=== PATIENT | male | born 1940 | race Caucasian/White ===

== ENCOUNTER 2017-04-22 11:46 | Inpatient (IN) | payer OTHER ==
--- NOTE | 2017-04-22 12:06 | EDPHY ---
H & P Time Seen by Provider: 04/22/17 12:05 HPI/ROS: CHIEF COMPLAINT: Cough and shortness of breath HISTORY OF PRESENT ILLNESS: History of pulmonary hypertension and pulmonary embolism on warfarin. Has had a cough for the past month. 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 Today cough is still present, nonproductive, associated with severe shortness of breath. Has some right-sided rib pain which only hurts when he coughs. Also associated with body aches and a sore throat. REVIEW OF SYSTEMS: Eye: no change in vision ENT: no sore throat Cardiac: No palpitations or syncope Pulmonary: HPI Abdomen: no vomiting, diarrhea, abdominal pain Musculoskeletal: no back pain or leg swelling Skin: no rash Neuro: no headache Constitutional: no fever : no urinary symptoms A comprehensive 10 point review of systems is otherwise negative aside from elements mentioned in the history of present illness. PAST MEDICAL HISTORY: Pulmonary hypertension, pulmonary embolism, hypertension , elevated cholesterol Social history: Nonsmoker, General Appearance: Alert and conversant, cooperative. Eyes: No scleral icterus. ENT, Mouth: Normal mucous membranes. Respiratory: Decreased breath sounds bilaterally with extra work of breathing. Cardiovascular: Regular rate and rhythm. Gastrointestinal: Abdomen is soft and non tender. Neurological: Alert, face symmetric, normal motor and sensory in extremities. Skin: Warm and dry, no rashes. Musculoskeletal: No peripheral edema. No calf tenderness. Psychiatric: Not agitated. Emergency Department course/MDM: Patient severely hypoxic with 80% on room air. Plan for chest x-ray, respiratory panel, labs to include protime. Nasal cannula oxygen applied, saturations in the low 90s. 1233: Chest x-ray stable, INR 1.3. Plan for CT angiography to evaluate for venous thromboembolism if normal creatinine with severe hypoxemia and subtherapeutic INR and history of pulmonary embolism. 1341: positive Flu B,Tamiflu po ordered. 1347: Pulmonary embolism on CTA per Dr. Tellez, received Lovenox 100 mg subcutaneously in the ED. Smoking Status: Never smoked Constitutional: Initial Vital Signs Temperature (C) 37.2 C 04/22/17 11:50 Heart Rate 96 04/22/17 11:50 Respiratory Rate 20 04/22/17 11:50 Blood Pressure 121/80 H 04/22/17 11:50 O2 Sat (%) 80 L 04/22/17 11:50 O2 Delivery Mode Nasal Cannula O2 (L/minute) 2 Allergies/Adverse Reactions: lisinopril Allergy (Verified 04/22/17 11:48) Home Medications: Medication Instructions Recorded Acetaminophen [Tylenol Tablet] 500 mg PO BID 08/22/12 Doxazosin Mesylate [Cardura 4 MG 4 mg PO HS 09/18/14 (*)] Oxybutynin Chloride [Ditropan] 5 mg PO HS 09/18/14 SIMVASTATIN 10 mg PO HS 09/18/14 Valsartan/Hydrochlorothiazide 0.5 each PO DAILY 09/18/14 [Valsartan-Hctz 320-25 mg Tab] amLODIPine BESYLATE [Norvasc 10 mg 10 mg PO DAILY 09/18/14 (*)] Warfarin Sodium [Coumadin 1MG (*)] 0.5 mg PO SUTUTHSA@16 04/22/17 Warfarin Sodium [Coumadin 1MG (*)] 1 mg PO MOWEFR@16 04/22/17 Warfarin Sodium [Coumadin 5MG (*)] 5 mg PO DAILY16 04/22/17 Medical Decision Making - Diagnostics EKG Interpretation: 12-lead EKG interpreted by me; official reading is in trace master. My interpretation is AFib rate 72 with low voltage in inferior leads Imaging Results: Imaging Impressions Chest/Thorax CTA 04/22/17 12:41 Impression: 1. Positive pulmonary thromboemboli bilaterally, small volume. 2. Small right pleural effusion with right lower lobe pneumonitis. 3. Groundglass opacities bilateral upper lobes which may represents additional pneumonitis. 4. No pneumothorax. 5. A few probably benign inflammatory mediastinal lymph nodes. 6. Coronary atherosclerosis. Findings and recommendations discussed with emergency department physician, Dale Hung MD at 1340 hours on April 22, 2017. Final report concurs with initial preliminary interpretation. A test result has been communicated to a licensed care provider and documented in the [facility] Critical Result system on 04/22/2017 14:07, Message ID [id number]. Chest x-ray appears stable without infiltrate or CHF. Imaging: I viewed and interpreted images myself Differential Diagnosis: Differential diagnosis considered for shortness of breath including but not limited to pulmonary infectious process, COPD, asthma, pulmonary embolus and congestive heart failure. Critical Care Time: Critical care time spent by me, Dr. Hung, exclusively with the care of this patient was 30 minutes, exclusive of PA or PLANT SCIENCES PROFESSOR time and exclusive of separate procedures. The organ system at risk was pulmonary and I ordered multiple diagnostics, supplemental oxygen, Tamiflu, anticoagulation to stabilize the patient and prevent worsening of the patient's condition. - Data Points Laboratory Results: Laboratory Results 04/22/17 12:08 04/22/17 12:08 04/22/17 04/22/17 04/22/17 12:08 12:08 12:07 WBC 5.43 10^3/uL 10^3/uL (3.80-9.50) RBC 4.41 10^6/uL 10^6/uL (4.40-6.38) Hgb 14.5 g/dL g/dL (13.7-17.5) Hct 44.3 % % (40.0-51.0) MCV 100.5 fL H fL (81.5-99.8) MCH 32.9 pg pg (27.9-34.1) MCHC 32.7 g/dL g/dL (32.4-36.7) RDW 13.9 % % (11.5-15.2) Plt Count 116 10^3/uL L 10^3/uL (150-400) MPV 9.5 fL fL (8.7-11.7) Neut % (Auto) 63.8 % % (39.3-74.2) Lymph % (Auto) 22.3 % % (15.0-45.0) Mccormick % (Auto) 13.1 % H % (4.5-13.0) Eos % (Auto) 0.0 % L % (0.6-7.6) Baso % (Auto) 0.6 % % (0.3-1.7) Nucleat RBC Rel Count 0.0 % % (0.0-0.2) Absolute Neuts (auto) 3.47 10^3/uL 10^3/uL (1.70-6.50) Absolute Lymphs (auto) 1.21 10^3/uL 10^3/uL (1.00-3.00) Absolute Monos (auto) 0.71 10^3/uL 10^3/uL (0.30-0.80) Absolute Eos (auto) 0.00 10^3/uL L 10^3/uL (0.03-0.40) Absolute Basos (auto) 0.03 10^3/uL 10^3/uL (0.02-0.10) Absolute Nucleated RBC 0.00 10^3/uL 10^3/uL (0-0.01) Immature Gran % 0.2 % % (0.0-1.1) Immature Gran # 0.01 10^3/uL 10^3/uL (0.00-0.10) PT 16.8 SEC H SEC (12.0-15.0) INR 1.34 H (0.83-1.16) Sodium 141 mEq/L mEq/L (135-145) Potassium 4.4 mEq/L mEq/L (3.5-5.2) Chloride 108 mEq/L mEq/L (97-110) Carbon Dioxide 20 mEq/l L mEq/l (22-31) Anion Gap 13 mEq/L mEq/L (8-16) BUN 18 mg/dL mg/dL (7-23) Creatinine 1.1 mg/dL mg/dL (0.7-1.3) Estimated GFR > 60 Glucose 93 mg/dL mg/dL (70-100) Calcium 9.1 mg/dL mg/dL (8.5-10.4) Troponin I 0.062 ng/mL H ng/mL (0.000-0.034) NT-Pro-B Natriuret Pep 6600 pg/mL H pg/mL (0-450) Microbiology Results: MICROBIOLOGY 04/22/17 12:20 Nasal, Sinus - Swab Respiratory Panel (PCR) - Final Influenza Virus Type B Medications Given: Discontinued Medications Enoxaparin Sodium (Lovenox) 100 mg SC EDNOW ONE Stop: 04/22/17 12:59 Last Admin: 04/22/17 13:34 Dose: 100 mg Oseltamivir Phosphate (Tamiflu) 75 mg PO EDNOW ONE Stop: 04/22/17 13:42 Last Admin: 04/22/17 13:48 Dose: 75 mg Departure - Departure Disposition: [facility] Acute Clinical Impression: Hypoxemia, Influenza Pulmonary embolism Qualifiers: Pulmonary embolism type: other Chronicity: acute Acute cor pulmonale presence: with acute cor pulmonale Qualified Code(s): I26.09 - Other pulmonary embolism with acute cor pulmonale Condition: Fair
[2017-04-22 12:21] LABS: PLATELET COUNT 116 10^3/uL (150-400)
--- NOTE | 2017-04-22 12:24 | CPEKG ---
Heart Rate: 72 RR Interval: 833 QRSD Interval: 90 QT Interval: 396 QTC Interval: 434 QRS [place]: 266 T Wave [place]: -1 EKG Severity - ABNORMAL ECG - EKG Impression: ATRIAL FIBRILLATION EKG Impression: MARKEDLY POSTERIOR QRS AXIS EKG Impression: LOW VOLTAGE IN FRONTAL LEADS EKG Impression: CONSIDER INFERIOR INFARCT Electronically Signed By: Dale Hung 22-Apr-2017 12:27:33
[2017-04-22 12:31] LABS: INR 1.34 (0.83-1.16); PROTIME(PATIENT) 16.8 SEC (12.0-15.0)
[2017-04-22] MEDS ORDERED: ENOXAPARIN 100 MG/ML SYR SC ONE (12:58)
[2017-04-22] MEDS ORDERED: IOPAMIDOL (ISOVUE 370) 100 ML BTL IV ONE (12:59)
[2017-04-22] MEDS ORDERED: OSELTAMIVIR PHOSPHATE 75 MG CAP PO ONE (13:41)
[2017-04-22] MEDS ORDERED: ONDANSETRON DISINTEGRATING 4 MG TAB PO PRN (14:36)
[2017-04-22] MEDS ORDERED: ONDANSETRON 4 MG/2 ML VIAL IVP PRN (14:36)
[2017-04-22] MEDS ORDERED: ACETAMINOPHEN 325 MG TAB PO PRN (14:36)
--- NOTE | 2017-04-22 15:16 | GHP ---
[f rep st] HISTORY AND PHYSICAL DATE OF ADMISSION: 04/22/2017 HISTORY OF PRESENT ILLNESS: The patient is a pleasant, 76-year-old gentleman with a history of pulmo nary hypertension and pulmonary embolism, who presents with malaise and shortness of breath. 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 He did not g et a flu shot this year. He has been home for about a week and he has been feeling so weak and tired and dyspneic that he has just been home sleeping for a number of days. He did not take his warfarin . He has not had hemoptysis or cough. He has not had chest pain. He has not had nausea. He has severe shortness of breath. He does wear oxygen at night. He traveled to [place]. He feel s like he does not need it at sea level. He also traveled to [facility] and he did not wear it there. REVIEW OF SYSTEMS: A complete 10-point review of systems was conducted and negative, except as noted in the HPI. PAST MEDICAL HISTORY: 1. Pulmonary embolism in 2008, bilateral. Been on warfarin ever since. 2. Chronic anticoagulation. Last INR was 3.6 one month ago. 3. Pulmonary hypertension. It sounds like it is pulmonary arterial hypertension, based on right and left heart catheterization by Dr. Sprague a number of years ago. This is as related by the patient. I have not reviewed the records. 4. BPH. 5. Hypertension. ALLERGIES: Lisinopril. MEDICATIONS: Home medications are Tylenol, amlodipine, doxazosin, oxybutynin, simvastatin, valsartan /hydrochlorothiazide, warfarin. SOCIAL HISTORY: Occasional alcohol. Lives in [facility]. for a number of years. Still wor ks. FAMILY HISTORY: His father had Parkinson's. Mother had lung disease. PHYSICAL EXAMINATION: VITAL SIGNS: Temperature 36.7, blood pressure 116/78, pulse 76, breathing at 18 times a minute, 88% on 2 L. GENERAL: In no acute distress. HEENT: Sclerae anicteric. Orophary nx clear. Mucous membranes moist. NECK: Supple without lymphadenopathy or JVD. LUNGS: Clear to a uscultation bilaterally. HEART: S1, S2. ABDOMEN: Soft, nontender, nondistended. LOWER EXTREMITIE S: Calves are nontender. SKIN: Without rash. NEUROLOGIC: Nonfocal. LABORATORY: Sodium 141, potassium 4.4, chloride 108, bicarb 20, BUN 18, creatinine 1.1. Troponin 0. 062, BNP is 6600 (there are no priors for comparison). INR is 1.3. White count 5.4, hematocrit 44, platelets are 116,000. EKG interpreted by me shows sinus at 72 with left axis deviation, normal intervals. There are T-wave inversion in lead 3, which is a normal variant. Chest x-ray, also interpreted by me, shows pulmonary arterial hypertension. CTA of the chest shows bilateral small volume pulmonary emboli, small right pleural effusion, ground- glass opacity which may represent pneumonitis. I have discussed the case with Dr. Dale Hung. ASSESSMENT AND PLAN: A 76-year-old man presents with influenza and pulmonary embolism. 1. Influenza. This is attributable to the absence of flu shot and numerous travels with probably in numerable sick contacts. I have started oseltamivir. This may be responsible for his hypoxemia. 2. Pulmonary embolism. He has a subtherapeutic INR. This is not a warfarin failure. I will treat him with low-molecular weight heparin and warfarin. He has a low clot burden. 3. Elevated BNP. I suspect this is secondary to the above 2 items. I will repeat it in the morning . I will not diurese him. 4. Elevated troponin. This is likely right heart strain. I will repeat it. I do not suspect acute coronary syndrome as evidenced by his nonischemic EKG and absence of chest pain. 5. Benign prostatic hypertrophy. Continue his doxazosin. DISPOSITION: Inpatient status. CODE STATUS: Full. /[id number]/MODL
--- NOTE | 2017-04-22 15:43 | PDMN ---
Medical Necessity Medical necessity: C/M review: est. 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
[2017-04-22] MEDS: WARFARIN SODIUM 5 MG TAB PO SCH (16:49)
[2017-04-22] MEDS: WARFARIN SODIUM 1 MG TAB PO SCH (16:49)
[2017-04-22] MEDS ORDERED: ALBUTEROL 3 ML DEYVIAL IH PRN (18:24)
[2017-04-22] MEDS: PRAVASTATIN SODIUM 20 MG TAB PO SCH (20:06)
[2017-04-22] MEDS: OXYBUTYNIN CHLORIDE 5 MG TAB PO SCH (20:06)
[2017-04-22] MEDS: DOXAZOSIN MESYLATE 4 MG TAB PO SCH (20:06)
[2017-04-22] MEDS ORDERED: NON-FORMULARY NEW DRUG (Simvastatin [Simvastatin] 10 MG) PO SCH (21:00)
[2017-04-22] MEDS: ENOXAPARIN 100 MG/ML SYR SC SCH (23:36)
[2017-04-22] MEDS: OSELTAMIVIR PHOSPHATE 75 MG CAP PO SCH (23:36)
[2017-04-23 04:13] LABS: INR 1.56 (0.83-1.16); PROTIME(PATIENT) 18.8 SEC (12.0-15.0)
[2017-04-23] MEDS ORDERED: HYDROCHLOROTHIAZIDE PO SCH (09:00)
[2017-04-23] MEDS ORDERED: VALSARTAN PO SCH (09:00)
[2017-04-23] MEDS ORDERED: [UNRECOGNIZED DRUG - OTHER] PO SCH (09:00)
--- NOTE | 2017-04-23 09:19 | ASMTCMCOM ---
CM Note CM Note Notes: Patient admitted for hypoxia - diagnosed with Influenza and PE. He uses O2 at home and takes Warfarin. He is normally independent - lives with and works. No therapies have been ordered, and I do not anticipate any d/c needs. Case Management available if they arise. Date Signed: 04/23/2017 09:18 AM Electronically Signed By:Jenna Palmer RN
--- NOTE | 2017-04-23 10:40 | ECHO ---
[email or web address] [address] Main: [phone] Fax: Transthoracic Echocardiogram Name: MYRA ROBERT MR#: [id number] Study Date: 04/23/2017 Study Time: 08:29 AM Date of : 1940 Age: 76 year(s) Height: 180.3 cm (71 in.) Weight: 109.32 kg (241 lb.) BSA: 2.28 m2 Gender: Male Examination: Echo Indication: known pulm htn, new PE, elev bnp and trop Image Quality: Adequate Contrast: Requested by: Ramos Olmedo BP: 112 mmHg/70 mmHg Heart Rate: 80 bpm Rhythm: Atrial fibrillation Indication: known pulm htn, new PE, elev bnp and trop Procedure Staff Natural Science Curator: Natalee Matson [facility] Reading Physician: Frank Snowden Requesting Provider: Conclusions: Normal global systolic LV function. EF is 52 %. Mild mitral valve regurgitation is present. There is mild thickening of the aortic cusps. Mild tricuspid regurgitation is present. Mildly dilated aortic root measuring 3.9 cm. Measurements: Chambers Valvular Assessment AV/MV Valvular Assessment TV/PV Normal Normal Normal Name Value Range Name Value Range Name Value Range Ao Arabella (MM): 3.9 cm (2.2 cm-3.7 AV Vmax: 1.02 m/s (1 m/s-1.7 TR Vmax: 2.67 mm/s ( - ) cm) m/s) TR PGmax: 29 mmHg ( - ) IVSd (2D): 1.3 cm (0.6 cm-1.1 AV maxP mmHg ( - ) syst. PAP: 44 mmHg ( - ) cm) LVOT Vmax: 0.72 m/s (0.7 m/s-1.1 PV Vmax: 0.62 m/s (0.6 m/s-0.9 LVDd (2D): 5.0 cm (4.2 cm-5.9 m/s) m/s) cm) MV E Vmax: 0.86 m/s ( - ) PV PGmax: 2 mmHg ( - ) LVDs (2D): 3.7 cm (2.1 cm-4 cm) LVPWd (2D): 1.3 cm (0.6 cm-1 cm) LVEF (BP): 52 % (>=55 %) RVDd(2D): 4.0 cm (1.9 cm-3.8 cmmm) Continued Measurements: Chambers Valvular Assessment AV/MV Valvular Assessment TV/PV Name Value Name Value Name Value LADs: 4.6 cm MV DecTime: 148 m/s CVP (est.): 15 mmHg Patient: MYRA ROBERT Study Date: 04/23/2017 Page 1 of 2 08:29 AM LADs Lon.8 cm LA Area: 26.6 cm2 LA Volume: 74 ml LA Volume Index: 32.5 ml/m2 TAPSE: 1.6 cm RA Area: 23.9 cm2 Additional Vessels Name Value Ao Ascendin.4 cm Findings: Left Ventricle: Normal size left ventricle. Mild to moderate LVH. Normal global systolic LV function. EF is 52 %. No regional wall motion abnormality. Unable to assess diastolic dysfunction. Right Ventricle: Mildly dilated right ventricle. Mildly reduced RV function. Left Atrium: The left atrium is mildly dilated. Right Atrium: The right atrium is moderately dilated. Mitral Valve: The mitral valve is normal in appearance and function. There is mild thickening of the mitral valve leaflets. Mild mitral valve regurgitation is present. No mitral stenosis is present. Aortic Valve: The aortic valve is tri-leaflet and functions normally. There is mild thickening of the aortic cusps. There is no aortic valve regurgitation. No aortic valve stenosis is present. Tricuspid Valve: The tricuspid valve is normal in appearance and function. Mild tricuspid regurgitation is present. The pulmonary artery pressure is mild to moderately increased. Right ventricular systolic pressure measures 44mmHg. Pulmonic Valve: The pulmonic valve is normal in appearance and function. Trivial pulmonic valve regurgitation. Aorta: Mildly dilated aortic root measuring 3.9 cm. Normal size ascending aorta measuring 3.4 cm. IVC: The IVC is dilated. There is less than 50% respiratory excursion. Pericardium: No pericardial effusion. (No Signature Object) Patient: MYRA ROBERT Study Date: 04/23/2017 Page 2 of 2 08:29 AM [id number]
--- NOTE | 2017-04-23 11:22 | HOSPPROG ---
Hospitalist Progress Note Assessment/Plan: 76 yo M w h/o PE admitted w sob, small new pe. incidental discovery of new AF AF: slow chads vasc 2 anticoagulated PE: in setting of subtherapeutic inr and sleeping for three days lmwh and warfarin hypoxemia: progressive not tachy or having CP to suggest add'l PE exam pretty normal but will repeat cxr as i suspect he has progressive influenza related lung disease influenza: tamiflu proph: anticoagulated dispo: inpt Subjective: case d/w dr granados. tele: AF, not rapid. (inter by me) Objective: Vital Signs Temp Pulse Resp BP Pulse Ox 36.3 C 79 20 112/70 92 04/23/17 07:06 04/23/17 07:06 04/23/17 07:06 04/23/17 07:06 04/23/17 07:06 Laboratory Results 04/23/17 03:18 04/22/17 04/23/17 04/24/17 05:59 05:59 05:59 Intake Total 696 Output Total 700 Balance -4 PT 18.8 SEC (12.0-15.0) H 04/23/17 03:18 INR 1.56 (0.83-1.16) H 04/23/17 03:18 - Physical Exam Constitutional: no apparent distress, appears nourished Eyes: PERRL, anicteric sclera Ears, Nose, Mouth, Throat: moist mucous membranes, hearing normal Cardiovascular: regular rate and rhythym, No systolic murmur, No JVD, No edema Respiratory: no respiratory distress, clear to auscultation Gastrointestinal: normoactive bowel sounds, soft, non-tender abdomen Genitourinary: no bladder fullness, No casanova in urethra Skin: warm Musculoskeletal: full muscle strength, no muscle tenderness Neurologic: AAOx3, sensation intact bilaterally Psychiatric: interacting appropriately ICD10 Worksheet Patient Problems: Problems Problem Status Onset Hypoxemia Acute Influenza Acute Pulmonary embolism Acute Lumbar stenosis with neurogenic claudication Acute
[2017-04-23] MEDS: HYDROCHLOROTHIAZIDE 12.5 MG CAP PO SCH (11:58)
[2017-04-23] MEDS: ENOXAPARIN 100 MG/ML SYR SC SCH ×2 (11:58→20:09)
[2017-04-23] MEDS: OSELTAMIVIR PHOSPHATE 75 MG CAP PO SCH ×2 (11:59→17:58)
--- NOTE | 2017-04-23 13:27 | GCON ---
[f rep st] CONSULTATION CARDIOLOGY CONSULTATION DATE OF CONSULTATION: 04/23/2017 CHIEF COMPLAINT: New onset atrial fibrillation. HISTORY OF PRESENT ILLNESS: We were asked by Dr. Olmedo to visit with Don. The patient is known to me from the outpatient setting, and I last saw him in June of 2014. He is a 76-year-old male with n ou-dmqv-uiijyxrs coronary disease, history of DVT, PE, hypertension, pulmonary hypertension, nocturna l hypoxia. He was admitted through the ER with dyspnea, hypoxia, and found to have influenza, as well as recurre nt pulmonary emboli. His INR was subtherapeutic. He was in atrial fibrillation, which is a new find ing for him. Ventricular rate was controlled. Upon my evaluation today, he reports feeling better with oxygen. He has not had anginal chest pain. He is not noticing palpitations. No syncope. No new lower extremity edema. He does have chronic l ower extremity related to his past DVT. ALLERGIES: Lisinopril. PAST MEDICAL HISTORY: 1. Msi-nedh-hsamtmry coronary disease based on angiogram in 2010. 2. History of DVT, and now recurrent PE. 3. Pulmonary hypertension. 4. Nocturnal hypoxia. 5. Dyslipidemia. 6. Hypertension. 7. New diagnosis of atrial fibrillation. OUTPATIENT MEDICATIONS: 1. Warfarin, for which his INR is managed at the anticoagulation clinic, but he has been traveling [place]. 2. Norvasc 10 mg daily. 3. Simvastatin. 4. Valsartan HCTZ. 5. Ditropan. 6. Cardura. SOCIAL HISTORY: The patient is . His is at the bedside. He does not smoke cigarettes. FAMILY HISTORY: Not applicable to the current case. PHYSICAL EXAM: VITAL SIGNS: Blood pressure 112/70, heart rate is 70, oxygen saturation 92% on 7 L n mateo cannula. He is afebrile. GENERAL: Slightly ill-appearing older male in no acute distress. HE ENT: Sclerae clear. No jaundice. Mucous membranes moist. CARDIOVASCULAR: JVP is less than 10. I rregular rate and rhythm, without murmur, S3, or gallop. LUNGS: Coarse breath sounds at both bases. No wheezes. Occasional scattered rhonchi. ABDOMEN: Soft and nontender. EXTREMITIES: Warm, well perfused, with trace bilateral ankle edema. NEURO: Alert and oriented x3, without gross focal neuro logical deficits. Appropriate mood and affect. LABORATORY DATA: White count 5.4, hematocrit 44, and platelets are 116. INR 1.56. Sodium 142, pota ssium 4.4, chloride 107, bicarb 26, BUN 18, creatinine 0.9. BNP is 2906, down from 6600 on admission . His troponin is minimally elevated at 0.62, trending down today to 0.59. Micropanel influenza typ e B positive. EKG, reviewed by me. Atrial fibrillation with controlled ventricular response. Left anterior fascic ular block. Delayed R-wave progression. Chest CT: Bilateral small volume pulmonary emboli. Small right pleural effusion and right lower lob e pneumonitis. Ground-glass opacities in both upper lobes. Inflammatory-appearing mediastinal lymph nodes. Coronary artery calcification. Echocardiogram: Normal LV systolic function, without regional wall motion abnormality. Mild tricusp id regurgitation, mildly dilated right ventricle with mildly reduced systolic function of the right v entricle. Mild left atrial and moderate right atrial dilation. Estimated pulmonary pressure is 44 m mHg. Aortic root is 3.9 cm. ASSESSMENT AND PLAN: A 76-year-old male with daa-bgxt-wtuvqjjr coronary disease, history of DVT, PE, now with recurrent PE in the setting of subth erapeutic INR. Also influenza. He has a new diagnosis of atrial fibrillation, which at this point i s not symptomatic. 1. Atrial fibrillation: He is well rate controlled. He already has a clear indication for anticoag ulation. We will consider switching to Eliquis. 2. PE: Being bridged with Lovenox. As above, consider Eliquis. 3. Pulmonary hypertension: Mild, based on today's echocardiogram. Continue oxygen and anticoagulat ion. 4. Hypoxia: Related to influenza and possibly PE. 5. Dyslipidemia: He is on simvastatin. 6. Hypertension: Well controlled here. He is on valsartan/HCTZ, as well as amlodipine. Thank for allowing us to participate in Don's care. We will follow with you. Copy requested to: primary care /[id number]/MODL
[2017-04-23] MEDS: VALSARTAN 80 MG TAB PO SCH (13:36)
[2017-04-23] MEDS: WARFARIN SODIUM 5 MG TAB PO SCH (17:58)
[2017-04-23] MEDS: WARFARIN SODIUM 1 MG TAB PO SCH (17:58)
[2017-04-23] MEDS ORDERED: CALCIUM CARBONATE 500 MG CHEWABLE TAB PO PRN (18:49)
[2017-04-23] MEDS: OXYBUTYNIN CHLORIDE 5 MG TAB PO SCH (20:08)
[2017-04-23] MEDS: PRAVASTATIN SODIUM 20 MG TAB PO SCH (20:08)
[2017-04-23] MEDS: DOXAZOSIN MESYLATE 4 MG TAB PO SCH (20:09)
[2017-04-24 04:55] LABS: INR 1.58 (0.83-1.16)
[2017-04-24] MEDS: OSELTAMIVIR PHOSPHATE 75 MG CAP PO SCH ×2 (08:58→18:18)
[2017-04-24] MEDS: ENOXAPARIN 100 MG/ML SYR SC SCH ×2 (08:58→21:49)
[2017-04-24] MEDS: HYDROCHLOROTHIAZIDE 12.5 MG CAP PO SCH (08:58)
[2017-04-24] MEDS: VALSARTAN 80 MG TAB PO SCH (08:58)
[2017-04-24] MEDS: WARFARIN SODIUM 5 MG TAB PO SCH (15:12)
[2017-04-24] MEDS: WARFARIN SODIUM 1 MG TAB PO SCH (15:12)
--- NOTE | 2017-04-24 16:30 | HOSPPROG ---
Hospitalist Progress Note Assessment/Plan: # acute on chronic (2L nocturnal) hypoxic resp failure - on 6L; d/t flu and PE # acute PE - cont lovenox and warfarin - discussed eliquis - he will consider # influenza B - tamiflu # a-fib - rate controlled - cont AC as above # htn - norvasc, valsartan/hctz # BPH - doxazosin Subjective: feels well but still coughing Objective: Vital Signs Temp Pulse Resp BP Pulse Ox 36.4 C 73 18 107/77 93 04/24/17 12:00 04/24/17 12:00 04/24/17 12:00 04/24/17 12:00 04/24/17 12:00 Laboratory Results 04/23/17 03:18 04/23/17 04/24/17 04/25/17 05:59 05:59 05:59 Intake Total 696 1300 Output Total 700 300 325 Balance -4 1000 -325 PT 19.0 SEC (12.0-15.0) H 04/24/17 03:45 INR 1.58 (0.83-1.16) H 04/24/17 03:45 chart reviewed CTA reviewed echo reviewed - Physical Exam Constitutional: no apparent distress, appears nourished Cardiovascular: regular rate and rhythym, no murmur, rub, or gallop Respiratory: no respiratory distress, inspiratory crackles (bilat bases), No respiratory distress, No dullness to percussion, No rhonchi Gastrointestinal: normoactive bowel sounds, soft, non-tender abdomen, no palpable masses ICD10 Worksheet Patient Problems: Problems Problem Status Onset Lumbar stenosis with neurogenic claudication Acute Hypoxemia Acute Pulmonary embolism Acute Influenza Acute
--- NOTE | 2017-04-24 17:18 | PDCARPN ---
Cardiology Progress Note Assessment/Plan: Assessment/plan: 76 yo M with hx PE, PHTN, HTN admitted 04/22 with hypoxia found to have influenza B and new PE in the setting of subtherapeutic INR. Also new dx of AF 1. AF: rate controlled. Switch to Eliquis. Consider outpt FORD DCCV 2. Hypoxia: flu and PE. Per hospital medicine 3. HTN: well controlled 4. PHTN: mild on echo this admission 5. TAA: 3.9 cm ascending aorta on echo. Will need outpt surveillance. 6. PE: travels a lot. Eliquis better option for stable anticoag Will sign off; please call with questions. Follow up with me at [facility] in 2-3 weeks. 04/24/17 17:15 Subjective: No SOB with supplemental O2. Does have right sided CP Reviewed/Discussed With: family, hospitalist Objective: Vital Signs (8 Hrs) Temp Pulse Resp BP Pulse Ox 04/24/17 16:00 36.6 C 85 18 121/70 H 94 04/24/17 12:00 36.4 C 73 18 107/77 93 Intake/Output (24 Hrs) 04/23/17 04/24/17 04/25/17 05:59 05:59 05:59 Intake Total 696 1300 Output Total 700 300 325 Balance -4 1000 -325 Intake: Oral (ml) 696 1300 Output: Urine (ml) 700 300 325 Toilet 700 Urinal 300 325 Other: Weight 109.316 kg Intake Quantity Yes Yes Sufficient Number of Voids Toilet 2 Urinal 1 1 Slightly dyspneic Irreg irreg no murmur Occ rhonchi Trace bilat ankle edema Result Diagrams: 04/22/17 12:08 04/23/17 03:18 Cardiac Labs: Cardiac Lab Results (72 Hrs) 04/22/17 18:34 Troponin I 0.059 H Telemetry: Controlled AF ICD10 Worksheet Patient Problems: Problems Problem Status Onset Lumbar stenosis with neurogenic claudication Acute Hypoxemia Acute Pulmonary embolism Acute Influenza Acute
[2017-04-24] MEDS: PRAVASTATIN SODIUM 20 MG TAB PO SCH (21:49)
[2017-04-24] MEDS: OXYBUTYNIN CHLORIDE 5 MG TAB PO SCH (21:49)
[2017-04-24] MEDS: DOXAZOSIN MESYLATE 4 MG TAB PO SCH (21:49)
[2017-04-25 04:26] LABS: INR 1.9 (0.83-1.16); PROTIME(PATIENT) 21.9 SEC (12.0-15.0)
[2017-04-25] MEDS: VALSARTAN 80 MG TAB PO SCH (08:04)
[2017-04-25] MEDS: OSELTAMIVIR PHOSPHATE 75 MG CAP PO SCH ×2 (08:04→17:59)
[2017-04-25] MEDS: HYDROCHLOROTHIAZIDE 12.5 MG CAP PO SCH (08:04)
[2017-04-25] MEDS: ENOXAPARIN 100 MG/ML SYR SC SCH ×2 (08:05→20:11)
--- NOTE | 2017-04-25 09:24 | ASMTCMCOM ---
CM Note CM Note Notes: CM spoke w/ KASSANDRA Flores regarding d/c POC. The plan remains the same. Pt will most likely d/c independent when medically stable. No therapies ordered at this time. CM available for changes. Plan: Independent Date Signed: 04/25/2017 09:24 AM Electronically Signed By:DENISHA Batres
--- NOTE | 2017-04-25 13:03 | HOSPPROG ---
Hospitalist Progress Note Assessment/Plan: # acute on chronic (2L nocturnal) hypoxic resp failure - better today; d/t flu and PE # acute PE - cont lovenox and warfarin - he would prefer warfarin over eliquis # influenza B - tamiflu # a-fib - rate controlled - cont AC as above # htn - norvasc, valsartan/hctz # BPH - doxazosin # thoracic aortic aneurysm - 3.9cm - outpatient follow-up Subjective: feels ok today; titrating down O2; does not want eliquis; seen with his Objective: Vital Signs Temp Pulse Resp BP Pulse Ox 36.5 C 74 16 118/71 91 L 04/25/17 11:44 04/25/17 11:44 04/25/17 11:44 04/25/17 11:44 04/25/17 11:44 Laboratory Results 04/23/17 03:18 04/24/17 04/25/17 04/26/17 05:59 05:59 05:59 Intake Total 1300 1470 Output Total 300 1550 175 Balance 1000 -80 -175 PT 21.9 SEC (12.0-15.0) H 04/25/17 03:16 INR 1.90 (0.83-1.16) H 04/25/17 03:16 - Physical Exam Constitutional: no apparent distress, appears nourished Eyes: anicteric sclera Ears, Nose, Mouth, Throat: hearing normal Respiratory: no respiratory distress, no rales or rhonchi Gastrointestinal: No distension Genitourinary: No casanova in urethra Skin: warm Musculoskeletal: full muscle strength Neurologic: AAOx3 Psychiatric: interacting appropriately ICD10 Worksheet Patient Problems: Problems Problem Status Onset Lumbar stenosis with neurogenic claudication Acute Hypoxemia Acute Pulmonary embolism Acute Influenza Acute
[2017-04-25] MEDS: WARFARIN SODIUM 5 MG TAB PO SCH (15:13)
[2017-04-25] MEDS: WARFARIN SODIUM 1 MG TAB PO SCH (15:13)
[2017-04-25] MEDS: DOXAZOSIN MESYLATE 4 MG TAB PO SCH (20:10)
[2017-04-25] MEDS: PRAVASTATIN SODIUM 20 MG TAB PO SCH (20:10)
[2017-04-25] MEDS: OXYBUTYNIN CHLORIDE 5 MG TAB PO SCH (20:11)
[2017-04-26 08:28] LABS: INR 2.02 (0.83-1.16); PROTIME(PATIENT) 22.9 SEC (12.0-15.0)
[2017-04-26 08:47] VITALS: RESP 16
[2017-04-26] MEDS: ENOXAPARIN 100 MG/ML SYR SC SCH (08:57)
[2017-04-26] MEDS: HYDROCHLOROTHIAZIDE 12.5 MG CAP PO SCH (08:59)
[2017-04-26] MEDS: VALSARTAN 80 MG TAB PO SCH (08:59)
[2017-04-26] MEDS: OSELTAMIVIR PHOSPHATE 75 MG CAP PO SCH (09:00)
[2017-04-26 11:28] VITALS: BP 116/86; PULSE 74; TEMP 98.6; O2SAT 93
--- NOTE | 2017-04-26 12:11 | PDHOMEO2F ---
Home Oxygen Face to Face Home Orders: I certify that a physician or a nurse practitioner or physician's information services assistant has had a [id number] encounter with this patient on the date of this order due to the diagnosis listed, which relates to the primary reason the patient requires home oxygen. Alternative treatments have been tried, or considered, and deemed ineffective. It is anticipated that supplemental oxygen will result in improvement with treatment. Home oxygen qualifying diagnosis: PE with chronic hypoxia; SpO2 on room air (%): 87 Frequency of home oxygen needed: continuous Home oxygen liters per minute: 3L Home oxygen delivery device: nasal cannula Concentrator: Yes E-tanks for mobility and back up: Yes If ordering portable O2, is the patient mobile in the home?: Yes I certify that, based on these findings, the home oxygen is medically necessary for this patient for the following length of time. Length of time home oxygen needed: 99 years
--- NOTE | 2017-04-26 13:00 | GDS ---
[f rep st] DISCHARGE SUMMARY ALL DIAGNOSES: 1. Acute on chronic hypoxic respiratory failure. 2. Acute pulmonary embolus. 3. Anticoagulation use with subtherapeutic INR on admission. 4. Influenza B positive. 5. Atrial fibrillation. 6. Hypertension. 7. Benign prostatic hypertrophy. 8. Thoracic aortic aneurysm, 3.9 cm. HOSPITAL COURSE: A 76-year-old man admitted with shortness of breath. Found to be influenza positiv e. He was on Coumadin for DVT and PE. However, he had not taken it for a few days. His INR was 1.3 on admission. He was also found to have an acute pulmonary embolus. He has been treated with Tamiflu for influenza. He is feeling much better. He was bridged to therap eutic INR with Lovenox. INR on the day of discharge is 2.02. He will continue his home warfarin. Divya wolff discussed transitioning to Eliquis; however, for now he would like to stay with warfarin. He was also incidentally found to be in atrial fibrillation. He was seen by Dr. Sprague, who will follo w him as an outpatient. She would consider a FORD and/or DC cardioversion at some point. Currently, he is rate controlled and anticoagulated, as above. He was found to have a thoracic aortic aneurysm on echo. He will need outpatient surveillance for th is. Dr. Sprague is aware. BILLING: I spent more than 30 minutes on the day of discharge coordinating care. /[id number]/MODL
== END 2017-04-26 15:20 | disposition home or self-care (01) | DRG 193 ==
LOC: F2W 14:36
PROVIDERS: ADMIT Internal Medicine; ATTEND Internal Medicine
DX: J10.1 Influenza due to other identified influenza virus with other respiratory manifestations (principal); I26.99 Other pulmonary embolism without acute cor pulmonale; J96.21 Acute and chronic respiratory failure with hypoxia; I48.91 Unspecified atrial fibrillation; R79.1 Abnormal coagulation profile; I71.2 Thoracic aortic aneurysm, without rupture; I27.20 Pulmonary hypertension, unspecified; N40.0 Benign prostatic hyperplasia without lower urinary tract symptoms; Z79.01 Long term (current) use of anticoagulants
CPT/HCPCS: J1650; J7613; Q9967

== ENCOUNTER → 2017-08-30 | Outpatient (CLI) | payer OTHER | LOC: BHFA 13:30 | PROVIDERS: ATTEND Internal Medicine Cardiovascular Disease | DX: I48.91 Unspecified atrial fibrillation (principal); R06.02 Shortness of breath ==

== ENCOUNTER → 2017-09-03 | Outpatient (CLI) | payer OTHER | LOC: BHFA 09:00 | PROVIDERS: ATTEND Internal Medicine Cardiovascular Disease | DX: I48.91 Unspecified atrial fibrillation (principal); R06.09 Other forms of dyspnea | CPT/HCPCS: 78452; 93017; A9500; J2785 ==

== ENCOUNTER 2017-09-17 09:07 | Day surgery (SDC) | payer OTHER ==
[2017-09-17] MEDS ORDERED: ATROPINE SULFATE 1 MG/10 ML SYR IVP ONE (09:09)
[2017-09-17] MEDS ORDERED: fentaNYL 100 MCG/2 ML INJ IVP ONE (09:09)
[2017-09-17] MEDS ORDERED: BENZOCAINE UNIT DOSE SPRAY HURRICAINE MM ONE (09:09)
[2017-09-17] MEDS ORDERED: NS 500 ML IV ONE (09:09)
[2017-09-17] MEDS ORDERED: MIDAZOLAM 2 MG/2 ML VIAL IVP ONE (09:09)
--- NOTE | 2017-09-17 09:18 | PDHPUP ---
History & Physical Update H&P update statement: This history and physical update is based on an assessment of the patient which was completed after admission or registration (within 24 hours), but prior to the surgery/procedure. H&P update: H&P reviewed & patient examined, no change in patient's condition since H&P completed (Please see my office note from earlier this month)
--- NOTE | 2017-09-17 09:27 | CPEKG ---
Heart Rate: 75 RR Interval: 800 P-R Interval: 180 QRSD Interval: 96 QT Interval: 440 QTC Interval: 492 P [place]: 0 QRS [place]: 259 T Wave [place]: 42 EKG Severity - ABNORMAL ECG - EKG Impression: SINUS RHYTHM EKG Impression: MULTIPLE ATRIAL PREMATURE COMPLEXES EKG Impression: PROBABLE INFERIOR INFARCT, AGE INDETERMINATE EKG Impression: BORDERLINE PROLONGED QT INTERVAL Electronically Signed By: Keven Geronimo 19-Sep-2017 12:18:25
[2017-09-17 10:03] LABS: INR 1.48 (0.83-1.16); PROTIME(PATIENT) 18.1 SEC (12.0-15.0)
[2017-09-17] MEDS ORDERED: PROPOFOL 200 MG/20 ML VIAL ONE ×2 (10:24)
--- NOTE | 2017-09-17 10:32 | PDANEPAE ---
ANE History of Present Illness FORD, synchronized CV ANE Past Medical History - Cardiovascular History Hx Hypertension: Yes Hx Arrhythmias: No Hx Chest Pain: Yes Hx Coronary Artery / Peripheral Vascular Disease: No Hx CHF / Valvular Disease: No Hx Palpitations: No Cardiovascular History Comment: PULM HTN, HPL. CHEST PAIN X SEVERAL MONTHS AGO - Pulmonary History Hx COPD: No Hx Asthma/Reactive Airway Disease: No Hx Recent Upper Respiratory Infection: Yes Hx Oxygen in Use at Home: Yes Hx Sleep Apnea: No Pulmonary History Comment: PE in past, has IVC filter, on O2 due to shortness of breath - Neurologic History Hx Cerebrovascular Accident: No Hx Seizures: No Hx Dementia: No - Endocrine History Hx Diabetes: No Obesity: moderate - Renal History Hx Renal Disorders: Yes Renal History Comment: BLADDER - CARDURA & DITROPAN. WELL CONTROLLED - Liver History Hx Hepatic Disorders: No - Neurological & Psychiatric Hx Hx Neurological and Psychiatric Disorders: No - Cancer History Hx Cancer: No - Congenital Disorder History Hx Congenital Disorders: No - GI History GERD: mild Hx Gastrointestinal Disorders: No - Other Health History Other Health History: NEG - Chronic Pain History Chronic Pain: Yes (BACK PAIN) - Surgical History Prior Surgeries: APPENDECTOMY. PE 2008-. -FILTER PLACED AND REMOVED. COLONOSCOPY. ANGIOGRAPHY X2 2012 & 2013 ANE Review of Systems Review of Systems: ANE Patient History - Allergies Allergies/Adverse Reactions: lisinopril Allergy (Verified 04/22/17 11:48) - Home Medications Home Medications: Acetaminophen [Tylenol ES 500 mg (*)] 500 mg PO BID 08/22/12 [Last Taken ] Doxazosin Mesylate [Cardura 4 MG (*)] 4 mg PO HS 09/18/14 [Last Taken 09/16/17] Oxybutynin Chloride [Ditropan] 5 mg PO BID 09/18/14 [Last Taken 09/16/17] SIMVASTATIN 10 mg PO HS 09/18/14 [Last Taken 09/16/17 16:00] Apixaban [Eliquis] 5 mg PO BID 09/17/17 [Last Taken 09/17/17 08:00] Spironolactone 25 mg PO DAILY 09/17/17 [Last Taken Unknown] amLODIPine BESYLATE [Norvasc 5 mg (*)] 5 mg 09/17/17 [Last Taken 09/16/17 16:00] - Smoking Hx Smoking Status: Never smoked ANE Labs/Vital Signs - Labs Result Diagrams: 09/17/17 09:35 - Vital Signs Height: 180.34 cm Weight: 106.594 kg ANE Physical Exam - Airway Neck exam: FROM Mallampati Score: Class 1 Mouth exam: normal dental/mouth exam - Pulmonary Pulmonary: clear to auscultation - Cardiovascular Cardiovascular: irregularly irregular - ASA Status ASA Status: III ANE Anesthesia Plan Anesthesia Plan: GA with mask
--- NOTE | 2017-09-17 10:59 | PDTEE1 ---
FORD Cardioversion Procedure Procedure: electrical cardioversion, transesophageal echo Indications: atrial fibrillation Consent: signed and in chart Anticoagulation: eliquis Procedural Details: Sedation provided by the anesthesia service. Pads were placed in anterior- posterior position. FORD probe was advanced and standard images obtained. There is no evidence of left atrial or left atrial appendage thrombus. Synchronized cardioversion attempt #1: 200J Results: normal sinus rhythm Conclusions: successful FORD cardioversion Patient Problems: Problems Problem Status Onset Hypoxemia Acute Influenza Acute Lumbar stenosis with neurogenic claudication Acute Pulmonary embolism Acute
--- NOTE | 2017-09-17 11:11 | CPEKG ---
Heart Rate: 59 RR Interval: 1017 P-R Interval: 248 QRSD Interval: 100 QT Interval: 488 QTC Interval: 484 P [place]: 55 QRS [place]: -81 T Wave [place]: 15 EKG Severity - ABNORMAL ECG - EKG Impression: SINUS RHYTHM EKG Impression: FIRST DEGREE AV BLOCK EKG Impression: PROBABLE INFERIOR INFARCT, AGE INDETERMINATE EKG Impression: BORDERLINE PROLONGED QT INTERVAL Electronically Signed By: Keven Geronimo 19-Sep-2017 12:18:35
--- NOTE | 2017-09-17 20:26 | ECHO ---
[email or web address] [address] [address] Main: [phone] Fax: Transesophageal Echocardiography Name: MYRA ROBERT MR#: [id number] Study Date: 09/17/2017 Study Time: 10:07 AM Date of : 1940 Age: 76 year(s) Height: ( ) Weight: ( ) BSA: Gender: Male Examination: FORD Indication: Pre cardioversion Image Quality: Adequate Contrast: Requested by: Ivet Sprague Heart Rate: Rhythm: BP: / Procedure Staff Educational Coordinator: Gina Cancino CHAY Reading Physician: Ivet Sprague MD Requesting Provider: FORD Exam Details Conclusions: Normal size left ventricle. Low normal left ventricular systolic function. The ejection fraction is visually estimated to be 50 %. Mildly dilated right ventricle. Mildly reduced RV systolic function. An agitated saline study was performed and was negative for intracardiac shunting. The left atrial appendage is unilobular. Good color flow doppler in the left atrial appendage. No thrombus in left appendage. Moderate mitral valve regurgitation is present. Moderate tricuspid regurgitation is present. The pulmonary artery pressure is mildly increased. Right ventricular systolic pressure measures 47mmHg. Proceed with cardioversion Measurements: Chambers Valvular Assessment AV/MV Valvular Assessment TV/PV Normal Normal Normal Name Value Range Name Value Range Name Value Range LVOTd 2.1 cm 2.1 cm mm TR Vmax: 3.24 mm/s ( - ) Visual EF: 50 % TR PGmax: 42 mmHg ( - ) syst. PAP: 47 mmHg ( - ) Additional Measurements: Patient: MYRA ROBERT Study Date: 09/17/2017 Page 1 of 2 10:07 AM Valvular Assessment AV/MV Valvular Assessment TV/PV Name Value Name Value MR ERO: 0.130 cm2 CVP (est.): 5 mmHg MR PISA radius: 5 mm MR Reg. Volume: 18 ml Findings: Left Ventricle: Normal size left ventricle. Low normal left ventricular systolic function. The ejection fraction is visually estimated to be 50 %. No regional wall motion abnormality. Right Ventricle: Mildly dilated right ventricle. Mildly reduced RV systolic function. Left Atrium: The left atrium is normal in size. An agitated saline study was performed and was negative for intracardiac shunting. Left Atrial Appendage: The left atrial appendage is unilobular. Good color flow doppler in the left atrial appendage. Normal PW-Doppler flow pattern. No thrombus in left appendage. Right Atrium: The right atrium is normal in size. Mitral Valve: Moderate mitral valve regurgitation is present. Aortic Valve: The aortic valve is tri-leaflet. There is no significant aortic valve regurgitation. No aortic valve stenosis is present. Tricuspid Valve: Moderate tricuspid regurgitation is present. The pulmonary artery pressure is mildly increased. Right ventricular systolic pressure measures 47mmHg. Pulmonic Valve: The pulmonic valve is normal in appearance and function. l1n (No Signature Object) Patient: MYRA ROBERT Study Date: 09/17/2017 Page 2 of 2 10:07 AM [id number]
--- NOTE | 2017-09-18 16:12 | POSTANESTH ---
Post Anesthetic Evaluation Cardiovascular Status: Similar to Pre-Op Cond Respiratory Status: Similar to Pre-op Cond. Level of Consciousness/Mental Status: Can Participate in Eval Pain Control: Adequate, Prn Tx Ordered Nausea/Vomiting Control: Adequate, Prn Tx Ordered Complications Possibly Related to Anesthesia: None Noted
== END 2017-09-17 12:23 | disposition home or self-care (01) ==
LOC: FCATH 09:07
PROVIDERS: ATTEND Internal Medicine Cardiovascular Disease
PROC: B245ZZ4 Ultrasonography of Left Heart, Transesophageal (ICD-10-PCS; principal; 2017-09-17)
PROC: 5A2204Z Restoration of Cardiac Rhythm, Single (ICD-10-PCS; principal; 2017-09-17)
DX: I48.91 Unspecified atrial fibrillation (principal); I10 Essential (primary) hypertension; E78.5 Hyperlipidemia, unspecified; I27.20 Pulmonary hypertension, unspecified; I26.99 Other pulmonary embolism without acute cor pulmonale; I77.810 Thoracic aortic ectasia; R60.9 Edema, unspecified; I25.10 Atherosclerotic heart disease of native coronary artery without angina pectoris; N40.0 Benign prostatic hyperplasia without lower urinary tract symptoms; Z79.01 Long term (current) use of anticoagulants
CPT/HCPCS: J0461; J2704

== ENCOUNTER 2018-02-09 20:40 | Inpatient (IN) | payer OTHER ==
--- NOTE | 2018-02-09 21:01 | EDPHY ---
H & P Stated Complaint: Lower abd pain and nausea Time Seen by Provider: 02/09/18 20:49 HPI/ROS: CHIEF COMPLAINT: Abdominal pain HISTORY OF PRESENT ILLNESS: This is a 77-year-old male with multiple medical problems who presents with lower abdominal pain that began approximately 8 hr ago (after he ate clam chowder). The pain has been on and off throughout the day but over the last hour or two it has gotten progressively worse. It is now constant. He has been constipated for the past 2 days. He took Pepto-Bismol this evening and had a normal bowel movement around 6:00 p.m. And a small bowel movement around 8:00 p.m. (1 hr ago). He has had nausea but no vomiting. He has not been aware of fever. No urinary complaints. His appendix has been removed. No other abdominal surgeries. REVIEW OF SYSTEMS: A ten system review of systems was performed and is negative with the exception of the items mentioned in the HPI. Past medical history: 1. Pulmonary hypertension 2. PE/DVT on Eliquis 3. Hypertension 4. Hyperlipidemia 5. Atrial fibrillation 6. Obstructive sleep apnea Past surgical history: 1. L4-5 back surgery 2. Detached retina left eye 2016 3. Bilateral cataracts 2016 4. Appendectomy Social history: He lives with his . He works in sales training. He does not use tobacco products. He drinks alcohol on rare occasion. General Appearance: Alert. Vital signs reviewed. Eyes: Pupils equal and round, no conjunctival injection, no discharge. Anicteric. ENT, Mouth: Mucous membranes are moist, no oropharyngeal erythema or edema. Is wearing nasal cannula oxygen. Neck: No lymphadenopathy, supple. Respiratory: Lungs are clear to auscultation; no wheezes, rales, or rhonchi. Cardiovascular: Regular rate and rhythm; no murmur, rub, or gallop. Gastrointestinal: Abdomen is soft with diffuse tenderness, worse in the suprapubic region and bilateral lower quadrants, slightly worse in the left lower quadrant than on the right, no masses or organomegaly, bowel sounds present. Easily reduced umbilical hernia. Skin: Warm and dry, no rashes on exposed skin, normal color. Back: Nontender to palpation over the thoracolumbar spine. No CVAT. Extremities: No lower extremity edema, no calf tenderness or swelling. Neurological: Alert and oriented. Moving all four extremities easily and equally. Psychiatric: Normal affect. - Personal History Current Tetanus/Diphtheria Vaccine: Yes Current Tetanus Diphtheria and Acellular Pertussis (TDAP): Yes Tetanus Vaccine Date: JULY 2012 - Medical/Surgical History Hx Asthma: No Hx Chronic Respiratory Disease: Yes Hx Diabetes: No Hx Cardiac Disease: Yes Hx Renal Disease: No Hx Cirrhosis: No Hx Alcoholism: No Hx HIV/AIDS: No Hx Splenectomy or Spleen Trauma: No Other PMH: Detached retina L eye, 05/19, 01/19 cataracts, hyperlipidemia, L4-L5 back surgery, afib, YASMANI,. DVT/PE 02/2009, 04/2017. pulmonary HTN. HTN. Elevated cholesterol - Social History Smoking Status: Never smoked Constitutional: Initial Vital Signs Temperature (C) 36.6 C 02/09/18 20:41 Heart Rate 67 02/09/18 20:41 Respiratory Rate 16 02/09/18 20:41 Blood Pressure 133/74 H 02/09/18 20:41 O2 Sat (%) 87 L 02/09/18 20:41 O2 Delivery Mode Room Air O2 (L/minute) 2 Allergies/Adverse Reactions: lisinopril Allergy (Verified 02/10/18 08:39) Other-Enter Comments Home Medications: Medication Instructions Recorded Acetaminophen [Tylenol ES 500 mg 500 mg PO BID 08/22/12 (*)] Doxazosin Mesylate [Cardura 4 MG 4 mg PO HS 09/18/14 (*)] Oxybutynin Chloride [Ditropan] 5 mg PO BID 09/18/14 SIMVASTATIN 10 mg PO HS 09/18/14 Apixaban [Eliquis] 5 mg PO BID 09/17/17 Furosemide [Lasix 40 MG (*)] 40 mg PO DAILY 09/17/17 amLODIPine BESYLATE [Norvasc 5 mg 2.5 mg PO DAILY 09/17/17 (*)] Bismuth Subsalicylate 30 ml PO DAILY PRN 02/10/18 [Pepto-Bismol oral liquid (*)] Medical Decision Making ED Course/Re-evaluation: 77-year-old male with lower abdominal pain that began earlier today and has gradually worsened. He has diffuse tenderness, worse in the lower quadrants on exam. Patient received fentanyl 100 mcg with minimal relief. He vomited shortly after receiving this medication. He does not currently have nausea. On reexamination at 9:35 a.m. He continues with diffuse abdominal pain, worse in the lower quadrants. His white blood cell count is mildly elevated. CT scan of the abdomen and pelvis has been ordered. CT scan shows small bowel obstruction. He will be admitted to the hospitalist service with surgical consultation by Dr. Rodriguez. Differential Diagnosis: Abdominal pain including but not limited to bowel obstruction, constipation, cholecystitis, pancreatitis, gastroenteritis, gastritis and urinary tract infection. - Data Points Laboratory Results: Laboratory Results 02/09/18 21:05 02/09/18 21:05 Medications Given: Acetaminophen (Tylenol) 1,000 mg PO Q8H [facility] Stop: 08/09/18 14:14 Last Admin: 02/10/18 22:03 Dose: Not Given Enoxaparin Sodium (Lovenox) 90 mg SC BID ANA LUISA Stop: 08/09/18 08:59 Last Admin: 02/10/18 08:38 Dose: 90 mg Sodium Chloride (Ns) 1,000 mls @ 100 mls/hr IV CONT ANA LUISA Stop: 08/08/18 22:44 Last Admin: 02/10/18 10:39 Dose: 1,000 mls Ceftriaxone Sodium/Dextrose (Rocephin 1 Gm (Premix)) 50 mls @ 100 mls/hr IV DAILY [facility] PRN Reason: Protocol Stop: 03/12/18 11:59 Last Admin: 02/10/18 12:23 Dose: 50 mls Metronidazole/Sodium Chloride (Flagyl 500 Mg (Premix)) 100 mls @ 100 mls/hr IV Q8H [facility] PRN Reason: Protocol Stop: 02/11/18 04:59 Last Admin: 02/10/18 19:55 Dose: 100 mls Ketorolac Tromethamine (Toradol) 15 mg IVP Q6HRS ANA LUISA Stop: 02/15/18 17:59 Last Admin: 02/10/18 18:41 Dose: 15 mg Discontinued Medications Fentanyl (Sublimaze) 100 mcg IVP EDNOW ONE Stop: 02/09/18 21:03 Last Admin: 02/09/18 21:22 Dose: 100 mcg Hydromorphone HCl (Dilaudid) 1 mg IVP EDNOW ONE Stop: 02/09/18 22:10 Last Admin: 02/09/18 22:11 Dose: 1 mg Hydromorphone HCl (Dilaudid) 0.2 - 0.4 mg IVP Q4HRS PRN PRN Reason: Pain, Severe Unable to Take PO Stop: 02/19/18 22:43 Last Admin: 02/09/18 23:24 Dose: 0.2 mg Hydromorphone HCl (Dilaudid) 0.8 mg IVP ONCE ONE Stop: 02/10/18 00:16 Last Admin: 02/10/18 00:15 Dose: 0.8 mg Hydromorphone HCl (Dilaudid) 0.2 - 0.4 mg IVP Q2 PRN PRN Reason: Pain, Severe Unable to Take PO Stop: 02/20/18 00:04 Last Admin: 02/10/18 11:13 Dose: 0.4 mg Hydromorphone HCl (Dilaudid) 1 mg IVP ONCE ONE Stop: 02/10/18 11:25 Last Admin: 02/10/18 11:32 Dose: 1 mg Sodium Chloride (Ns) 1,000 mls @ 200 mls/hr IV CONT ANA LUISA Stop: 08/08/18 22:14 Last Admin: 02/09/18 22:13 Dose: 1,000 mls Metronidazole/Sodium Chloride (Flagyl 500 Mg (Premix)) 100 mls @ 100 mls/hr IV ONCE ONE PRN Reason: Protocol Stop: 02/10/18 12:48 Last Admin: 02/10/18 12:42 Dose: 100 mls Lidocaine (Uroject Lidocaine 2% Jelly) Confirm Administered Dose 20 ml .ROUTE .STK-MED ONE Stop: 02/10/18 12:45 Last Admin: 02/10/18 12:54 Dose: 20 ml Ondansetron HCl (Zofran) 4 mg IVP EDNOW ONE Stop: 02/09/18 22:10 Last Admin: 02/09/18 22:10 Dose: 4 mg Departure - Departure Disposition: [facility] Acute Clinical Impression: Small bowel obstruction Condition: Fair
[2018-02-09] MEDS ORDERED: fentaNYL 100 MCG/2 ML INJ IVP ONE (21:02)
[2018-02-09 21:18] LABS: PLATELET COUNT 189 10^3/uL (150-400)
[2018-02-09] MEDS ORDERED: IOPAMIDOL (ISOVUE-300) 100 ML BTL ONE (21:43)
[2018-02-09] MEDS ORDERED: ONDANSETRON 4 MG/2 ML VIAL ONE (22:08)
[2018-02-09] MEDS ORDERED: HYDROmorphONE/DILAUDID 1 MG/ML INJ ONE (22:08)
[2018-02-09] MEDS ORDERED: ONDANSETRON 4 MG/2 ML VIAL IVP ONE (22:09)
[2018-02-09] MEDS ORDERED: HYDROmorphONE/DILAUDID 2 MG/ML INJ IVP ONE (22:09)
[2018-02-09] MEDS ORDERED: NS 1,000 ML IV SCH (22:15)
[2018-02-09] MEDS ORDERED: PROMETHAZINE HCL 25 MG/ML INJ IVP PRN (22:44)
[2018-02-09] MEDS ORDERED: ONDANSETRON DISINTEGRATING 4 MG TAB PO PRN (22:44)
[2018-02-09] MEDS ORDERED: ONDANSETRON 4 MG/2 ML VIAL IVP PRN (22:44)
[2018-02-09] MEDS ORDERED: ACETAMINOPHEN 325 MG TAB PO PRN (22:44)
[2018-02-09] MEDS ORDERED: HYDROmorphONE/DILAUDID 1 MG/ML INJ IVP PRN (22:44)
[2018-02-10] MEDS ORDERED: HYDROmorphONE/DILAUDID 1 MG/ML INJ IVP ONE ×2 (00:15→11:24)
[2018-02-10] MEDS: NS 1,000 ML IV SCH ×2 (00:45→10:39)
--- NOTE | 2018-02-10 01:31 | GHP ---
DATE OF ADMISSION: 02/09/2018 The patient is a 77-year-old gentleman with a history of pulmonary hypertension, VTE and remote appen dectomy, who presents with abdominal pain that began earlier in the day. He had clam neil. Uncle ar if [place] or [place]. He subsequently developed abdominal pain with nausea, vomiting, and distention. He had 1 episode of vomiting in the emergency department. He sought care where he was f ound to have a small bowel obstruction. He has not had fever, chills. He has not had sputum. There is no diarrhea. He wears nocturnal oxygen. He takes Eliquis. His VTE episode was in 2008. REVIEW OF SYSTEMS: A complete 10-point review of systems conducted and negative except as noted in t he HPI. PAST MEDICAL HISTORY: 1. 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 2. 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 3. Hypertension. 4. Hyperlipidemia. 5. Atrial fibrillation status post cardioversion. 6. Obstructive sleep apnea. 7. L4-L5 back surgery. 8. Detached retina in his left eye 2016. 9. Bilateral cataracts 2016. 10. Appendectomy 1992. 11. BPH. SOCIAL HISTORY: He lives with his . He works in sales training. He does not use tobacco. Kwadwo ks alcohol occasionally. He had 2 beers last . FAMILY HISTORY: Parents . PHYSICAL EXAMINATION: VITAL SIGNS: Temp 36.6, blood pressure 133/74, pulse 67, breathing 16 times a minute, 87% on room air, 95 on 2 L. GENERAL: No acute distress. Sclerae anicteric. Oropharynx cl ear. Mucous membranes are moist. NECK: Supple with no lymphadenopathy or JVD. LUNGS: Clear to au scultation bilaterally. HEART: S1, S2. ABDOMEN: Soft. Bowel sounds are hypoactive, but present. There is no rebound or guarding but there is distention and tenderness. LOWER EXTREMITIES: Without edema. Calves are nontender. SKIN: Without rash. NEUROLOGIC: Nonfocal. LABORATORY DATA: Sodium 141, potassium 4.0, chloride 106, bicarb 26, BUN 21, creatinine 1.0, glucose 139. LFTs normal. Lipase normal. CBC: White count 10.3, hematocrit 43.1, platelets are 189. MCV is slightly elevated at 101.4. ALLERGIES: Lisinopril. HOME MEDICATIONS: Tylenol, amlodipine, apixaban, doxazosin, furosemide, oxybutynin, simvastatin, spi ronolactone. I have discussed the case with Dr. Eun Diaz as well as Dr. Rodriguez. CT shows small bowel obstruction with no free air. There is possibly a transition point in the mid p gema. He has an enlarged prostate. I reviewed the images myself. ASSESSMENT/PLAN: A 77-year-old gentleman with small bowel obstruction. 1. Small bowel obstruction. I will manage him conservatively with n.p.o., IV fluids, pain medicines and antiemetics. We discussed the role of NG tube. He declines for now, but I did mention to him t hat if he becomes more distended, he may have symptomatic relief. He will be followed by Surgery, wh ich is appreciated. 2. History of venous thromboembolism. He is still on anticoagulation. He currently takes _. I will manage him with low-molecular weight heparin given his inability to keep p.o. 3. Benign prostatic hypertrophy. We will follow. 4. Atrial fibrillation. No need for telemetry. 5. Leukocytosis attributable to small bowel obstruction. DISPOSITION: Inpatient status. /[id number]/MODL
[2018-02-10] MEDS: HYDROmorphONE/DILAUDID 1 MG/ML INJ IVP PRN ×4 (03:20→11:13)
[2018-02-10 04:59] LABS: PLATELET COUNT 175 10^3/uL (150-400)
[2018-02-10] MEDS: ENOXAPARIN 100 MG/ML SYR SC SCH (08:38)
--- NOTE | 2018-02-10 08:53 | GCON ---
REFERRING PHYSICIAN: Eun Diaz MD ADMISSION DIAGNOSES: Partial small-bowel obstruction. HISTORY: The patient is a 77-year-old male who was eating a half a bowl of clam chowder this morning at 11 a.m. At approximately 2 p.m., he had the onset of a colicky generalized abdominal pain. This persisted prompting his visit to the emergency room. He did receive narcotics and vomited shortly thereafter for his first only episode of vomiting. His last stool was at 7 p.m. tonight, he tried again at 8 p.m. without results and then he came to the emergency room. He has not had a recent upper respiratory tract infection or diarrhea. Prior surgery has included an appendectomy. His CAT scan shows minimal dilatation of stomach, mild dilatation of the proximal small bowel, and collapse of distal small bowel. SOCIAL HISTORY: He does not smoke and never has. He does drink intermittently and had for example 4 drinks last week. ALLERGIES: He is has an adverse reaction to lisinopril (tickle in his throat). He does not report any other adverse reactions or allergies. HOME MEDICATIONS: Include Tylenol 500 mg twice a day, Norvasc 5 mg daily. He takes Lasix 40 mg daily (see below). He takes spironolactone 25 mg daily. He also takes apixaban 5 mg twice a day, Cardura 4 mg p.o. at bedtime, and Ditropan 5 mg twice a day, simvastatin 10 mg q.h.s. REVIEW OF SYSTEMS: He does use oxygen at night at 2 L/minute. He does not have sleep apnea or use a CPAP device. He has a right common iliac stent. He had a diskectomy at L4-5. He has had bilateral cataract extraction with lens placement. He had detached retina treated with the laser. He did have a venacaval filter placed and subsequently removed. There is no history of rheumatic fever, tuberculosis, hepatitis, or transfusions. He has had difficulties in the past with endurance. He was diagnosed as having atrial fibrillation in June of this year. He did undergo cardioversion and felt much better afterwards. He had his DVT in February of 2009. This was complicated by a pulmonary embolism and led to pulmonary hypertension. He has had systemic hypertension for greater than 60 years. He wears lenses for visual correction. He has dental crowns. He does have GERD after spicy foods, which is a rate of once or twice a month. His activity is limited by shortness of breath, though is better after his cardioversion. Note is made that he originally had Lasix started in July of this year and it was stopped after the cardioversion, but restarted 2 weeks ago. He has prostatism as manifested by nocturia x2, terminal dribbling, a spray like stream initially. He also has a decreased force in his stream. PHYSICAL EXAMINATION: VITAL SIGNS: Blood pressure is 133/74 at 67. His room air sats are 97%. GENERAL: He is awake and alert, quite pleasant. NEUROLOGIC: He is oriented to person, place, and time. GCS is 15. There are no focal lateralizing neurologic findings. HEENT: Skull is normocephalic and atraumatic. NECK: There are no bruits or thyroid enlargement. LYMPHATIC: There is no cervical, supraclavicular, axillary, or inguinal lymphadenopathy. BACK: He is diaphoretic at this point. CHEST: Chest stable to AP and lateral compression. LUNGS: Clear to auscultation. CARDIAC: Shows S1, S2 to be normal. He has a regular rate and rhythm. ABDOMEN: Not distended. He has hypoactive nonobstructive sound in bowel sounds. He does have an umbilical hernia which is easily reduced and not seen on CT scan to be an obstructing process. I do not detect any inguinal hernias. With cough, he is tender 3 fingerbreadths above the pubic tubercle and approximately 2 fingerbreadths to the right of the midline at the level of 3/ 10. To palpation, left upper quadrant is 1/10 mid, left mid abdomen is 3/10, left lower quadrant 1/10, epigastrium is 1/10, periumbilical region is 4/10, suprapubic region is 2/10, right upper quadrant is 2/10, right mid abdomen is 4/ 10, right lower quadrant is 4/10. LABORATORY/IMAGING: White blood cell count is 10.26 with 76% neutrophils, hematocrit is 43, mean corpuscular volume is 101.4, platelet count 29, creatinine is 1.0, BUN is 12. In reviewing his CT scan, CT does show a hiatal hernia. As mentioned before, there is no umbilical hernia. There are multiple dilated small bowel loops mainly in the left upper quadrant. The kidneys show several cystic changes. There is calcified plaque in the coronary vessels, the mitral anulus and the renal arteries. He does have degenerative changes in his spine. There is a stent in the proximal right common iliac artery. The transition point appears to be in the lower mid abdomen. IMPRESSION: Patient with small-bowel obstruction, probably secondary to an adhesion and this is exacerbated by the lack of chewing for the clam tissue in clam chowder getting caught. His stomach is not distended at this point. I do not think a nasogastric tube is going to add much at this time. I expect this to resolve without surgical intervention. Followup abdominal x-ray will be ordered for the morning. /[id number]/MODL MTDD
--- NOTE | 2018-02-10 09:37 | ASMTCMCOM ---
CM Note CM Note Notes: Patient admitted with abd pain and SBO on imaging. He is being managed conservatively with pain medications and fluids. Surgery will see. Patient is normally independent and lives with . If he has any discharge needs, Case Management will assist. Date Signed: 02/10/2018 09:37 AM Electronically Signed By:Jenna Palmer RN
--- NOTE | 2018-02-10 10:10 | PDMN ---
Medical Necessity Medical necessity: MCG M210 Intestinal Obstruction, 2 days: 77 yo w/ SBO. Admit to IP status for management of SBO w/ IVF, pain management, antiemetics, NPO. Surgical Consult. Hx DVT, PE, pHTN, HTN, HLD, Afib, YASMANI
--- NOTE | 2018-02-10 10:17 | HOSPPROG ---
Hospitalist Progress Note Assessment/Plan: Rainer More is a 77 y/o male who presented to the ER with abdominal pain. Pain occurred after eating clam chowder last night, Tried pepto-bismol without improvement. Pain is ongoing today in LLQ *SBO -CT shows small obstruction -abd x ray pending *hx of DVT -on treatment dose of anticoagulation *BPH *AFIB -s/p ablation -in sinus rhythm now *Leukocytosis *Plan: Lc has significant pain david in LLQ, cont IV Dilaudid, this is giving him some relief . Subjective: Lc said pain is managed w iv dilaudid. Objective: Vital Signs Temp Pulse Resp BP Pulse Ox 36.5 C 79 14 126/74 H 90 L 02/10/18 07:50 02/10/18 07:50 02/10/18 07:50 02/10/18 07:50 02/10/18 07:50 Laboratory Results 02/10/18 04:35 02/10/18 04:35 02/09/18 02/10/18 02/11/18 05:59 05:59 05:59 Intake Total 525 Output Total 325 300 Balance 200 -300 - Physical Exam Constitutional: appears nourished, uncomfortable, No not in pain Eyes: PERRL Ears, Nose, Mouth, Throat: hearing normal Cardiovascular: regular rate and rhythym, systolic murmur Respiratory: no respiratory distress Gastrointestinal: normoactive bowel sounds, tenderness (llq) Skin: warm Neurologic: AAOx3 Psychiatric: interacting appropriately ICD10 Worksheet Patient Problems: Problems Problem Status Onset Small bowel obstruction Acute Hypoxemia Acute Influenza Acute Lumbar stenosis with neurogenic claudication Acute Pulmonary embolism Acute
--- NOTE | 2018-02-10 11:53 | SOAPPROG ---
SOAP Progress Note Assessment/Plan: PAD#1 02/10/18 11:50 Assessment: Patient was doing well until he awoke from sleep a short while ago with severe abdominal pain. Xrays this asm were not impressive. VSS and labs ok. Plan: Exploratory surgery for and acute abdomen presumable due to bowel perforation due to SBO Subjective: this really hurts Objective: Vital Signs Temp Pulse Resp BP Pulse Ox 36.5 C 80 14 132/81 H 91 L 02/10/18 11:25 02/10/18 11:25 02/10/18 11:25 02/10/18 11:25 02/10/18 11:25 Laboratory Results 02/10/18 04:35 02/10/18 04:35 02/09/18 02/10/18 02/11/18 05:59 05:59 05:59 Intake Total 525 Output Total 325 300 Balance 200 -300 - Time Spent With Patient Time Spent With Patient: 15 - Pending Discharge Pending Discharge Within 24 Hours: No Pending Discharge Within 48 Hours: No Physical Exam - Physical Exam General Appearance: WD/WN, alert, severe distress Respiratory: chest non-tender, lungs clear, normal breath sounds Cardiac/Chest: regular rate, rhythm Abdomen: distended, guarding, rebound, rigid Male Genitalia: deferred Rectal: deferred Back: Normal inspection Skin: normal color, diaphoresis Extremities: normal range of motion, non-tender Neuro/Psych: no motor/sensory deficits, alert, normal mood/affect, oriented x 3 ICD10 Worksheet Patient Problems: Problems Problem Status Onset Small bowel obstruction Acute Hypoxemia Acute Influenza Acute Lumbar stenosis with neurogenic claudication Acute Pulmonary embolism Acute
[2018-02-10] MEDS ORDERED: CEFAZOLIN 1 GM/DEXTROSE/50 ML BAG IV ONE (12:13)
[2018-02-10] MEDS ORDERED: fentaNYL 250 MCG/5 ML INJ ONE (12:26)
[2018-02-10] MEDS ORDERED: PROPOFOL/EMULSION 500 MG/50 ML BOTTLE IV ONE (12:26)
--- NOTE | 2018-02-10 12:26 | PDANEPAE ---
ANE History of Present Illness 77 year old with acute abdomen for exploratory lap. History of A-fib, htn, PE, CHF. ANE Past Medical History - Cardiovascular History Hx Hypertension: Yes Hx Arrhythmias: Yes Hx Chest Pain: Yes Hx Coronary Artery / Peripheral Vascular Disease: Yes Hx CHF / Valvular Disease: Yes Hx Palpitations: Yes Cardiovascular History Comment: PULM HTN, HPL. CHEST PAIN X SEVERAL MONTHS AGO - Pulmonary History Hx COPD: No Hx Asthma/Reactive Airway Disease: No Hx Recent Upper Respiratory Infection: Yes Hx Oxygen in Use at Home: Yes O2 in Use at Home (L/minute): 2 Hx Sleep Apnea: Yes Sleep Apnea Screening Result - Last Documented: Positive Pulmonary History Comment: PE in past, has IVC filter, on O2 due to shortness of breath - Neurologic History Hx Cerebrovascular Accident: No Hx Seizures: No Hx Dementia: No - Endocrine History Hx Diabetes: No - Renal History Hx Renal Disorders: Yes Renal History Comment: BLADDER - CARDURA & DITROPAN. WELL CONTROLLED - Liver History Hx Hepatic Disorders: No - Neurological & Psychiatric Hx Hx Neurological and Psychiatric Disorders: No - Cancer History Hx Cancer: No - Congenital Disorder History Hx Congenital Disorders: No - GI History Hx Gastrointestinal Disorders: No - Other Health History Other Health History: NEG - Chronic Pain History Chronic Pain: Yes (BACK PAIN) - Surgical History Prior Surgeries: APPENDECTOMY. PE 2008-. -FILTER PLACED AND REMOVED. COLONOSCOPY. ANGIOGRAPHY X2 2012 & 2013 ANE Review of Systems Review of systems is: negative Review of Systems: ANE Patient History - Allergies Allergies/Adverse Reactions: lisinopril Allergy (Verified 02/10/18 08:39) Other-Enter Comments - Home Medications Home Medications: Acetaminophen [Tylenol ES 500 mg (*)] 500 mg PO BID 08/22/12 [Last Taken ] Doxazosin Mesylate [Cardura 4 MG (*)] 4 mg PO HS 09/18/14 [Last Taken 02/09/18] Oxybutynin Chloride [Ditropan] 5 mg PO BID 09/18/14 [Last Taken 02/09/18 PM] SIMVASTATIN 10 mg PO HS 09/18/14 [Last Taken 02/09/18] Apixaban [Eliquis] 5 mg PO BID 09/17/17 [Last Taken 02/09/18 PM] Furosemide [Lasix 40 MG (*)] 40 mg PO DAILY 09/17/17 [Last Taken 02/09/18] amLODIPine BESYLATE [Norvasc 5 mg (*)] 2.5 mg PO DAILY 09/17/17 [Last Taken 10/20] Bismuth Subsalicylate [Pepto-Bismol oral liquid (*)] 30 ml PO DAILY PRN [Last Taken Unknown] - NPO status NPO Since - Liquids (Date): 02/09/18 NPO Since - Liquids (Time): 12:00 NPO Since - Solids (Date): 02/09/18 NPO Since - Solids (Time): 12:00 - Smoking Hx Smoking Status: Never smoked ANE Labs/Vital Signs - Labs Result Diagrams: 02/10/18 04:35 02/10/18 04:35 - Vital Signs Blood Pressure: 132/81 Heart Rate: 80 Respiratory Rate: 14 O2 Sat (%): 91 Height: 180.34 cm Weight: 90.718 kg ANE Physical Exam - Airway Neck exam: FROM Mallampati Score: Class 2 Mouth exam: normal dental/mouth exam - Pulmonary Pulmonary: no respiratory distress - Cardiovascular Cardiovascular: regular rate and rhythym - ASA Status ASA Status: III, E ANE Anesthesia Plan Anesthesia Plan: general endotracheal anesthesia
[2018-02-10] MEDS ORDERED: LIDOCAINE 2% JELLY 20 ML (UROJECT) ONE (12:44)
[2018-02-10] MEDS ORDERED: MIDAZOLAM 2 MG/2 ML VIAL ONE (12:45)
[2018-02-10] MEDS ORDERED: ALBUTEROL 3 ML DEYVIAL IH PRN (13:22)
[2018-02-10] MEDS ORDERED: fentaNYL 100 MCG/2 ML INJ IVP PRN (13:22)
[2018-02-10] MEDS ORDERED: LR 500 ML IV PRN (13:22)
[2018-02-10] MEDS ORDERED: NALOXONE HCL 0.4 MG/ML INJ IVP PRN (13:22)
[2018-02-10] MEDS ORDERED: LABETALOL HCL 20 MG/4 ML INJ IVP PRN (13:22)
[2018-02-10] MEDS ORDERED: oxyCODONE IR 5 MG TAB PO PRN (13:22)
[2018-02-10] MEDS ORDERED: HYDROmorphONE/DILAUDID 1 MG/ML INJ IVP PRN (14:20)
--- NOTE | 2018-02-10 14:31 | POSTOPPROG ---
Post Op Note Date of Operation: 02/10/18 Surgeon: Joel Rodriguez Anesthesia: GET(General Endotracheal) Pre-op Diagnosis: Acute abdomen, SBO Post-op Diagnosis: SBO due to adhesions with jenunal ischemia Indication: Acute abdomen, SBO Procedure: Exp lap, enterolysis, repair umbilical hernia Findings: SBO due to adhesions with jenunal ischemia Inf/Abcess present in the surg proc area at time of surgery?: No EBL: Minimal Total fluids administered: 400 Complications: None Specimen(s): none
--- NOTE | 2018-02-10 15:10 | GOP ---
DATE OF OPERATION: 02/10/2018 SURGEON: Joel Rodriguez MD ANESTHESIA: General endotracheal. PREOPERATIVE DIAGNOSIS: Acute abdomen with small-bowel obstruction. POSTOPERATIVE DIAGNOSIS: Small-bowel obstruction due to adhesions with jejunal ischemia. PROCEDURE PERFORMED: Exploratory laparotomy, enterolysis, and repair of umbilical hernia. FINDINGS: Small-bowel obstruction due to adhesions with jejunal ischemia. SPECIMENS: None. ESTIMATED BLOOD LOSS: Minimal. INDICATIONS: Acute abdomen with small-bowel obstruction. DESCRIPTION OF PROCEDURE: The patient is placed on the operating room table in supine position. After induction of adequate general endotracheal anesthesia, the abdomen was carefully clipped. I then carefully passed a Land catheter because of his prostatism. The Uro-Jet was used and passage was uncomplicated. He was now prepped and draped. A surgical time-out was carried out and agreed to by all members of the operative team. The incision was made and carried to the left of the umbilicus from low epigastrium to the upper hypogastrium. The skin was sharply incised and the Bovie is used to complete the dissection down to the fascia. The fascia is entered in the infraumbilical position and carefully extended in a cephalad direction. The fascia was elevated between Allis clamps. Cautery was carefully used to incise the peritoneum and the abdominal cavity is entered. There was no injury to the subjacent bowel. With the protection of a finger, the peritoneum was carefully incised with cautery. Immediately just below the umbilicus, there is a section of brick red intestine. This was carefully delivered. There are 3 bands of adhesions in the right lower quadrant, which is not unexpected given his only prior surgery was an appendectomy. These bands are released. I am able to find the cecum in a higher position in the right pericolic space. The small bowel is carefully followed proximally to the level of the ischemic bowel. Note is made the ischemic bowel showing signs of recovering. The intestines were then examined more proximally to the level of Treitz. There are no other adhesions. The colon is full of stool. The loop of bowel, which is concerning is brought out onto the abdomen, is laid on a warm moist lap tapes and covered with a moist surgical towel, then a dry surgical towel, and let dwell for approximately 10 minutes. On re-examination, there was excellent return of color and peristalsis of the bowel. Intestines are placed back in the abdominal space. The patient is known to have a large fatty umbilical hernia. At this point while waiting for the intestines to further show signs of recovery, the herniated umbilical fat is reduced. It was trimmed with the Harmonic scalpel. A suture was placed from side to side in the fascia encompassing the pull-down section of the umbilicus to recreate the normal anatomy and obliterate the space. Intestines are evaluated 1 more time and I feel they are very viable. The abdominal cavity is irrigated with approximately 3 L of warm saline. The fascia is closed using a running technique starting at the caudal end and this stitch was brought to just below the umbilicus. A second stitch is started in the cephalad end and carefully run. When I got down to the level of the umbilicus, care was taken to make sure this stitch, includes both sides of the umbilical hernia ring. This resulted in complete closure and suture is then run to just below the umbilicus. The second suture is run up to it. They are both tied. The subcutaneous tissue was irrigated. The skin was closed with cyn. A sterile dressing is applied. The patient is transferred to recovery. He has a face mask on to provide 80% FiO2. INFECTION PRESENT: No. FLUIDS ADMINISTERED: 400 cc. URINE OUTPUT: 300 cc. COMPLICATIONS: None. /[id number]/MODL MTDD
[2018-02-10] MEDS: ACETAMINOPHEN 500 MG TAB PO SCH ×2 (16:13→22:03)
--- NOTE | 2018-02-10 16:47 | POSTANESTH ---
Post Anesthetic Evaluation Cardiovascular Status: Normal, Stable Respiratory Status: Normal, Stable Level of Consciousness/Mental Status: Mildly Sleepy, Arousable Pain Control: Adequate, Prn Tx Ordered Nausea/Vomiting Control: Adequate, Prn Tx Ordered Complications Possibly Related to Anesthesia: None Noted
[2018-02-10] MEDS: KETOROLAC 15 MG/1 ML SDV IVP SCH (18:41)
[2018-02-11] MEDS: KETOROLAC 15 MG/1 ML SDV IVP SCH ×4 (00:15→18:30)
[2018-02-11] MEDS: NS 1,000 ML IV SCH (01:48)
[2018-02-11 05:35] LABS: PLATELET COUNT 154 10^3/uL (150-400)
[2018-02-11] MEDS: ACETAMINOPHEN 500 MG TAB PO SCH ×3 (06:28→22:04)
--- NOTE | 2018-02-11 08:05 | SOAPPROG ---
SOAP Progress Note Assessment/Plan: PAD#1 02/10/18 11:50 Assessment: Patient was doing well until he awoke from sleep a short while ago with severe abdominal pain. Xrays this asm were not impressive. VSS and labs ok. Plan: Exploratory surgery for and acute abdomen presumable due to bowel perforation due to SBO PAD#2 POD#1 02/11/18 08:02 Assessment: Doing quite well! VSS, Labs OK, abdomen non distended, +/- BS. Plan: DC casanova Ambulate Await flatus Subjective: I feel much better! Objective: Vital Signs Temp Pulse Resp BP Pulse Ox 36.8 C 83 16 121/76 H 93 02/11/18 07:40 02/11/18 07:40 02/11/18 07:40 02/11/18 07:40 02/11/18 07:40 Laboratory Results 02/11/18 04:55 02/11/18 04:55 02/10/18 02/11/18 02/12/18 05:59 05:59 05:59 Intake Total 678 993 2042 Output Total 325 970 Balance 200 -470 1400 - Time Spent With Patient Time Spent With Patient: 15 - Pending Discharge Pending Discharge Within 24 Hours: No Physical Exam - Physical Exam General Appearance: WD/WN, alert, no apparent distress Respiratory: lungs clear, normal breath sounds Cardiac/Chest: regular rate, rhythm Abdomen: non-tender, soft, other (Incision dry, +/- BS) Male Genitalia: deferred Rectal: deferred Back: Normal inspection Skin: normal color, warm/dry Extremities: normal range of motion, non-tender Neuro/Psych: no motor/sensory deficits, alert, normal mood/affect, oriented x 3 ICD10 Worksheet Patient Problems: Problems Problem Status Onset Small bowel obstruction Acute Hypoxemia Acute Influenza Acute Lumbar stenosis with neurogenic claudication Acute Pulmonary embolism Acute
--- NOTE | 2018-02-11 13:01 | HOSPPROG ---
Hospitalist Progress Note Assessment/Plan: Rainer More is a 77 y/o male who presented to the ER with abdominal pain. Pain occurred after eating clam chowder. Reviewed his care w Dr Rodriguez. *SBO due to adhesions with jejunal ischemia -s/p exploratory laparotomy -had an acute abdomen yesterday *pain due to the above -prn medications *hx of DVT -will resume treatment dose of anticoagulation *post op ileus -he needs time, continue IV hydration *BPH *AFIB -s/p ablation -in sinus rhythm now *right hilar mass *Leukocytosis *Plan: change fluids, continue supportive care Subjective: Lc is having some abdominal pain, but quite different than the pain he had yesterday. Objective: Vital Signs Temp Pulse Resp BP Pulse Ox 36.4 C 74 16 120/65 92 02/11/18 11:56 02/11/18 11:56 02/11/18 11:56 02/11/18 11:56 02/11/18 11:56 Laboratory Results 02/11/18 04:55 02/11/18 04:55 02/10/18 02/11/18 02/12/18 05:59 05:59 05:59 Intake Total 230 327 4725 Output Total 325 970 100 Balance 200 -470 1300 - Physical Exam Constitutional: no apparent distress, No not in pain Eyes: PERRL Ears, Nose, Mouth, Throat: hearing normal Cardiovascular: regular rate and rhythym Respiratory: no respiratory distress Gastrointestinal: tenderness, No normoactive bowel sounds (no bowel sounds noted ) Skin: warm Musculoskeletal: full muscle strength Neurologic: AAOx3 Psychiatric: interacting appropriately ICD10 Worksheet Patient Problems: Problems Problem Status Onset Small bowel obstruction Acute Hypoxemia Acute Influenza Acute Lumbar stenosis with neurogenic claudication Acute Pulmonary embolism Acute
[2018-02-11] MEDS: ENOXAPARIN 100 MG/ML SYR SC SCH (22:03)
[2018-02-12] MEDS: KETOROLAC 15 MG/1 ML SDV IVP SCH ×4 (00:45→18:29)
[2018-02-12] MEDS: LR 1,000 ML IV SCH ×2 (01:46→15:58)
[2018-02-12] MEDS: ACETAMINOPHEN 500 MG TAB PO SCH ×3 (05:15→21:34)
[2018-02-12 05:20] LABS: PLATELET COUNT 151 10^3/uL (150-400)
[2018-02-12] MEDS: ENOXAPARIN 100 MG/ML SYR SC SCH ×2 (08:14→21:36)
--- NOTE | 2018-02-12 08:40 | SOAPPROG ---
ANTHONY Progress Note Assessment/Plan: Assessment: 77yo M c high grade SBO s/p ex-lap, adhesiolysis - VSS, HDS - pain much better today - abdomen is soft, incision covered with clean dressing. He has no bowel sounds or appreciable bowel function - he is hungry, will GO SLOW with clears. Anticipate he will have a decent ileus given previous peritonitis - continue ambulation Plan: 02/12/18 08:39 Subjective: pain much better, wants to go home. Still no appreciable bowel function Objective: Vital Signs Temp Pulse Resp BP Pulse Ox 36.8 C 84 16 132/84 H 95 02/12/18 04:00 02/12/18 04:00 02/12/18 04:00 02/12/18 04:00 02/12/18 04:00 Laboratory Results 02/12/18 04:31 02/12/18 04:31 02/11/18 02/12/18 02/13/18 05:59 05:59 05:59 Intake Total 500 1400 Output Total 970 100 Balance -470 1300 ICD10 Worksheet Patient Problems: Problems Problem Status Onset Small bowel obstruction Acute Hypoxemia Acute Influenza Acute Lumbar stenosis with neurogenic claudication Acute Pulmonary embolism Acute
--- NOTE | 2018-02-12 14:10 | HOSPPROG ---
Hospitalist Progress Note Assessment/Plan: Rainer More is a 77 y/o male who presented to the ER with abdominal pain. Pain occurred after eating clam chowder. Reviewed his care w Dr Rodriguez. *SBO due to adhesions with jejunal ischemia -s/p exploratory laparotomy -Ceftriaxone *pain due to the above -prn medications *hx of DVT - resumed treatment dose of anticoagulation *post op ileus -he needs time, continue IV hydration -tolerating clears, told him to take fluids slowly *hypernatremia -mild -recheck in a.m. *BPH *AFIB -s/p ablation -in sinus rhythm now *right hilar mass -will get a repeat chest x ray *Leukocytosis *Plan: cont fluids for now, not taking enough po at this time Subjective: Lc is anxious to be dc, but knows it will take some time. Have no abdominal pain. Objective: Vital Signs Temp Pulse Resp BP Pulse Ox 36.8 C 84 16 132/84 H 95 02/12/18 04:00 02/12/18 04:00 02/12/18 04:00 02/12/18 04:00 02/12/18 04:00 Laboratory Results 02/12/18 04:31 02/12/18 04:31 02/11/18 02/12/18 02/13/18 05:59 05:59 05:59 Intake Total 500 1400 Output Total 970 100 Balance -470 1300 - Physical Exam Constitutional: no apparent distress, appears nourished Eyes: PERRL Ears, Nose, Mouth, Throat: hearing normal Cardiovascular: regular rate and rhythym Respiratory: no respiratory distress Gastrointestinal: distension (slight, not tender), No normoactive bowel sounds ( very quiet) Skin: warm Musculoskeletal: full muscle strength Neurologic: AAOx3 Psychiatric: interacting appropriately ICD10 Worksheet Patient Problems: Problems Problem Status Onset Small bowel obstruction Acute Hypoxemia Acute Influenza Acute Lumbar stenosis with neurogenic claudication Acute Pulmonary embolism Acute
[2018-02-13] MEDS: KETOROLAC 15 MG/1 ML SDV IVP SCH ×5 (01:02→23:35)
[2018-02-13] MEDS: LR 1,000 ML IV SCH ×3 (03:00→23:35)
[2018-02-13] MEDS: ACETAMINOPHEN 500 MG TAB PO SCH ×3 (05:30→21:51)
--- NOTE | 2018-02-13 07:36 | SOAPPROG ---
SOAP Progress Note Assessment/Plan: Assessment: 77yo M c high grade SBO s/p ex-lap, adhesiolysis - VSS, HDS - pain is well controlled - abdomen is soft, incision is c.d.i, has better bowel sounds than yesterday but still not excellent. OK with regular diet, needs to go slow - Need to wean O2, discussed IS today. Plan: 02/12/18 08:39 02/13/18 07:35 Subjective: very eager to eat and go home Objective: Vital Signs Temp Pulse Resp BP Pulse Ox 36.6 C 81 14 143/94 H 92 02/13/18 02:51 02/13/18 02:51 02/13/18 02:51 02/13/18 02:51 02/13/18 02:51 Laboratory Results 02/12/18 04:31 02/13/18 05:01 02/12/18 02/13/18 02/14/18 05:59 05:59 05:59 Intake Total 1400 230 Output Total 100 450 Balance 1300 -220 ICD10 Worksheet Patient Problems: Problems Problem Status Onset Small bowel obstruction Acute Hypoxemia Acute Influenza Acute Lumbar stenosis with neurogenic claudication Acute Pulmonary embolism Acute
[2018-02-13] MEDS ORDERED: CALCIUM CARBONATE 500 MG CHEWABLE TAB PO PRN (09:05)
[2018-02-13] MEDS: ENOXAPARIN 100 MG/ML SYR SC SCH ×2 (09:10→21:54)
--- NOTE | 2018-02-13 09:24 | HOSPPROG ---
Hospitalist Progress Note Assessment/Plan: Rainer More is a 77 y/o male who presented to the ER with abdominal pain. Pain occurred after eating thomm valeriader First encounter, chart reviewed. *SBO due to adhesions with jejunal ischemia -s/p exploratory laparotomy -Ceftriaxone -tried food, threw up -liquid diet -added protonix *pain due to the above -prn medications *hx of DVT - treatment dose of anticoagulation *post op ileus -he needs time, continue IV hydration -liquid diet again -failed food *hypernatremia -mild -resolved *BPH *AFIB -s/p ablation -in sinus rhythm now *right hilar mass -will get a repeat chest x ray, ordered *Leukocytosis -mild *Plan: cont fluids for now, not taking enough po at this time follow, encourage walking D/W RN Subjective: Up at edge of bed. Feels nauseous. Just threw up. Pain controlled. Objective: Vital Signs Temp Pulse Resp BP Pulse Ox 36.8 C 79 16 160/95 H 91 L 02/13/18 07:49 02/13/18 07:49 02/13/18 07:49 02/13/18 07:49 02/13/18 07:49 Laboratory Results 02/12/18 04:31 02/13/18 05:01 02/12/18 02/13/18 02/14/18 05:59 05:59 05:59 Intake Total 1400 230 Output Total 100 450 50 Balance 1300 -220 -50 - Physical Exam Constitutional: no apparent distress, appears nourished, not in pain Eyes: PERRL, anicteric sclera, EOMI Ears, Nose, Mouth, Throat: moist mucous membranes, hearing normal, ears appear normal Cardiovascular: No JVD, No tachycardia, No edema Respiratory: no respiratory distress, no rales or rhonchi, reduced air movement Gastrointestinal: tenderness, distension, No ascites Skin: warm, normal color, No mottled Musculoskeletal: normal joint ROM, no joint effusions, generalized weakness Neurologic: AAOx3 Psychiatric: interacting appropriately, not anxious, not encephalopathic, thought process linear ICD10 Worksheet Patient Problems: Problems Problem Status Onset Lumbar stenosis with neurogenic claudication Acute Hypoxemia Acute Pulmonary embolism Acute Influenza Acute Small bowel obstruction Acute
--- NOTE | 2018-02-13 09:42 | ASMTCMCOM ---
CM Note CM Note Notes: CM spoke to KASSANDRA Mccracken and Frances Hatch NP. Pt did not tolerate advancing his diet this am. Pt should not have any d/c needs. CM available for changes. Plan: Independent Date Signed: 02/13/2018 09:42 AM Electronically Signed By:DENISHA Batres
[2018-02-13] MEDS ORDERED: hydrALAZINE 20 MG/ML VIAL IVP PRN (09:43)
[2018-02-13] MEDS: PANTOPRAZOLE SODIUM 40 MG VIAL IVP SCH ×2 (10:01→21:51)
[2018-02-14] MEDS: ACETAMINOPHEN 500 MG TAB PO SCH ×3 (05:30→21:56)
[2018-02-14] MEDS: KETOROLAC 15 MG/1 ML SDV IVP SCH ×3 (05:31→18:11)
[2018-02-14] MEDS: ENOXAPARIN 100 MG/ML SYR SC SCH ×2 (08:05→21:57)
[2018-02-14] MEDS: PANTOPRAZOLE SODIUM 40 MG VIAL IVP SCH ×2 (08:09→21:56)
--- NOTE | 2018-02-14 10:10 | SOAPPROG ---
ANTHONY Progress Note Assessment/Plan: Assessment: 77yo M c high grade SBO s/p ex-lap, adhesiolysis - VSS, HDS - pain is well controlled - has weaned his O2, will likely need at dc is need for 2L at all times persists - abdomen looks good, he is tolerating his clears, will attempt to advance again , anticipate he will go slower this time and will do fine Plan: 02/12/18 08:39 02/13/18 07:35 02/14/18 10:09 Subjective: vomited yesterday but no issues since. Still passing flatus Objective: Vital Signs Temp Pulse Resp BP Pulse Ox 36.7 C 68 18 144/84 H 90 L 02/14/18 08:01 02/14/18 08:01 02/14/18 08:01 02/14/18 08:01 02/14/18 08:01 Laboratory Results 02/12/18 04:31 02/13/18 05:01 02/13/18 02/14/18 02/15/18 05:59 05:59 05:59 Intake Total 230 2409 Output Total 450 825 Balance -220 1584 ICD10 Worksheet Patient Problems: Problems Problem Status Onset Small bowel obstruction Acute Hypoxemia Acute Influenza Acute Lumbar stenosis with neurogenic claudication Acute Pulmonary embolism Acute
--- NOTE | 2018-02-14 13:39 | HOSPPROG ---
Hospitalist Progress Note Assessment/Plan: Rainer More is a 77 y/o male who presented to the ER with abdominal pain. *SBO due to adhesions with jejunal ischemia -s/p exploratory laparotomy -Ceftriaxone -tried food, threw up -advance diet again today -cont protonix *pain due to the above -prn medications *hx of DVT - treatment dose of anticoagulation *post op ileus -seems better -increase PO -tolerating clears *hypernatremia -mild -resolved *BPH *AFIB -s/p ablation -in sinus rhythm now *right hilar mass -will get a repeat chest x ray, ordered *Leukocytosis -mild *Plan: follow, encourage walking Subjective: Feeling better today. Not hungry. Eager for shower and walking. Objective: Vital Signs Temp Pulse Resp BP Pulse Ox 36.6 C 68 18 131/83 H 90 L 02/14/18 11:19 02/14/18 11:19 02/14/18 11:19 02/14/18 11:19 02/14/18 11:19 Laboratory Results 02/12/18 04:31 02/13/18 05:01 02/13/18 02/14/18 02/15/18 05:59 05:59 05:59 Intake Total 230 2409 Output Total 450 825 Balance -220 1584 - Physical Exam Constitutional: appears nourished, not in pain Eyes: PERRL, anicteric sclera Ears, Nose, Mouth, Throat: moist mucous membranes, hearing normal Cardiovascular: No JVD, No edema Respiratory: no respiratory distress, reduced air movement Gastrointestinal: tenderness, distension, No ascites Skin: warm, normal color Musculoskeletal: normal joint ROM, no joint effusions, generalized weakness Neurologic: AAOx3 Psychiatric: interacting appropriately, not anxious, not encephalopathic ICD10 Worksheet Patient Problems: Problems Problem Status Onset Lumbar stenosis with neurogenic claudication Acute Hypoxemia Acute Pulmonary embolism Acute Influenza Acute Small bowel obstruction Acute
[2018-02-15] MEDS: KETOROLAC 15 MG/1 ML SDV IVP SCH ×2 (00:23→05:46)
[2018-02-15] MEDS: ACETAMINOPHEN 500 MG TAB PO SCH (05:45)
[2018-02-15 08:12] VITALS: BP 147/86
--- NOTE | 2018-02-15 08:55 | PDDCSUM ---
Discharge Summary Discharge Summary: DISCHARGE SUMMARY Date of Admission February 09, 2018 Date of Discharge February 15, 2018 DISCHARGE DIAGNOSES -small-bowel obstruction HOSPITAL COURSE The patient was admitted from the ED with CT scan evidence of small bowel obstruction. He was initially managed conservatively, however on the morning of the it was decided that his pain was worse and he was subsequently taken to the operating room where he underwent exploratory laparotomy, lysis of adhesions and reduction of internal hernia. There was some dusky bowel which perked up, no resection was performed. He had a prolonged ileus after his procedure, he was initially NPO, his diet was slowly advanced and on the day of discharge she was tolerating a regular diet with appropriate return of bowel function. His pain was initially controlled with IV narcotics, transition to oral narcotics and eventually [id number] pain medications. He had consultation from Hospital Medicine to help manage his medical comorbidities. He was taken off is Eliquis and placed on Lovenox during his hospital stay, he was placed back on the Eliquis at his home dose on day of discharge. He was discharged home in stable condition on the morning of the DISCHARGE MEDICATIONS All home medications were restarted, no narcotics given DISPOSITION Home FOLLOW UP Follow up with me in the office in 10-14 days for a general post-operative visit Total discharge time = 25 minutes; more than 50% spent counseling/coordinating care
[2018-02-15] MEDS ORDERED: APIXABAN 5 MG TAB PO SCH (09:00)
--- NOTE | 2018-02-15 09:23 | HOSPPROG ---
Hospitalist Progress Note Assessment/Plan: Rainer More is a 77 y/o male who presented to the ER with abdominal pain. *SBO due to adhesions with jejunal ischemia -s/p exploratory laparotomy -tolerating food *pain due to the above -prn medications *hx of DVT - treatment dose of anticoagulation -restart home meds *post op ileus -better *hypernatremia -resolved *BPH *AFIB -s/p ablation *right hilar mass -repeat chest x ray stable *Leukocytosis -resolved *Plan: DC home Subjective: Up walking. No pain. Objective: Vital Signs Temp Pulse Resp BP Pulse Ox 36.4 C 71 16 147/86 H 93 02/15/18 08:00 02/15/18 08:00 02/15/18 08:00 02/15/18 08:00 02/15/18 08:00 Laboratory Results 02/12/18 04:31 02/13/18 05:01 02/14/18 02/15/18 02/16/18 05:59 05:59 05:59 Intake Total 2409 200 Output Total 825 575 Balance 1584 -375 - Physical Exam Constitutional: no apparent distress, appears nourished Eyes: PERRL, anicteric sclera Ears, Nose, Mouth, Throat: moist mucous membranes, hearing normal Cardiovascular: No JVD, No edema Respiratory: no respiratory distress, reduced air movement Gastrointestinal: No tenderness, No ascites Skin: warm, normal color Musculoskeletal: normal joint ROM, no joint effusions Neurologic: AAOx3 Psychiatric: interacting appropriately, not anxious, not encephalopathic ICD10 Worksheet Patient Problems: Problems Problem Status Onset Lumbar stenosis with neurogenic claudication Acute Hypoxemia Acute Pulmonary embolism Acute Influenza Acute Small bowel obstruction Acute
[2018-02-15] MEDS: PANTOPRAZOLE SODIUM 40 MG VIAL IVP SCH (09:45)
== END 2018-02-15 11:45 | disposition home or self-care (01) | DRG 335 ==
LOC: F3E 23:30
PROVIDERS: ADMIT Internal Medicine; ATTEND Internal Medicine
DX: K56.51 Intestinal adhesions [bands], with partial obstruction (principal); K55.012 Diffuse acute (reversible) ischemia of small intestine; K91.89 Other postprocedural complications and disorders of digestive system; K46.9 Unspecified abdominal hernia without obstruction or gangrene; I10 Essential (primary) hypertension; E78.5 Hyperlipidemia, unspecified; I48.91 Unspecified atrial fibrillation; G47.33 Obstructive sleep apnea (adult) (pediatric); N40.0 Benign prostatic hyperplasia without lower urinary tract symptoms; I27.20 Pulmonary hypertension, unspecified; Z79.01 Long term (current) use of anticoagulants; Z86.718 Personal history of other venous thrombosis and embolism; Z86.711 Personal history of pulmonary embolism
CPT/HCPCS: 96374; J0690; J0696; J1170; J1650; J1885; J2250; J2405; J2704; J3010; Q9967